=== PATIENT | female | born 1960 | race Caucasian/White ===

== ENCOUNTER 2021-01-04 00:55 | Inpatient (IN) | payer MEDICAID ==
[2021-01-04] MEDS ORDERED: SODIUM CHLORIDE 0.9% 1,000 ML IV STA (01:06)
[2021-01-04] MEDS ORDERED: ONDANSETRON 4 MG/2 ML VIAL IVP STA ×2 (01:06→02:26)
[2021-01-04] MEDS ORDERED: HYDROmorphone 1 MG/ML CARPUJECT IVP STA ×2 (01:15→03:23)
--- NOTE | 2021-01-04 01:20 | ED Physician Documentation ---
PD HPI ABD PAIN - Stated complaint Stated Complaint: R FLANK PX/VOMITING - Chief complaint Chief Complaint: Abd Pain - History obtained from History obtained from: Patient - Additional information Additional information: Patient comes emergency department chief complaint of right flank pain and vomiting for the last 2 days. She states that she has not had any fevers but has had some chills. No dysuria. No respiratory symptoms. Patient has a history of chronic kidney disease but is not on hemodialysis. She does make urine. Patient notes that she still has her appendix. She denies any vaginal symptoms. No other complaints at this time. She states that her pain is an 8 out of 10 at worse and nothing makes it better. She states that taking a deep breath or moving makes it worse. She does note that the pain has moved down lower into her abdomen from its original location in her side. Review of Systems Ten Systems: 10 systems reviewed and negative Constitutional: reports: Reviewed and negative Eyes: reports: Reviewed and negative Ears: reports: Reviewed and negative Nose: reports: Reviewed and negative Throat: reports: Reviewed and negative Cardiac: reports: Reviewed and negative Respiratory: reports: Reviewed and negative GI: reports: Abdominal Pain, Nausea, Vomiting : reports: Reviewed and negative Skin: reports: Reviewed and negative Musculoskeletal: reports: Back pain Neurologic: reports: Reviewed and negative Psychiatric: reports: Reviewed and negative Endocrine: reports: Reviewed and negative Immunocompromised: reports: Reviewed and negative PD PAST MEDICAL HISTORY - Present Medications Home Medications: Ambulatory Orders Medication Instructions Recorded Confirmed Aspirin [[place] Aspirin] 81 mg PO DAILY PRN 01/04/21 01/04/21 Atorvastatin Calcium 40 mg PO DAILY 01/04/21 01/04/21 Bupropion HCl [Wellbutrin Xl] 300 mg PO DAILY 01/04/21 01/04/21 Insulin Detemir [Levemir] 20 units SUBQ QPM 01/04/21 01/04/21 Insulin Lispro [Humalog] 3 - 8 units SUBQ TIDWM 01/04/21 01/04/21 Melatonin 3 mg PO QPM 01/04/21 01/04/21 [place]-3 Fatty Acids [Fish Oil 2,000 mg PO DAILY 01/04/21 01/04/21 Concentrate] - Allergies Allergies/Adverse Reactions: Allergies Allergy/AdvReac Type Severity Reaction Status Date / Time No Known Drug Allergies Allergy Verified 01/04/21 01:02 PD ED PE NORMAL - Vitals Vital signs reviewed: Yes - General General: Alert and oriented X 3, No acute distress, Well developed/nourished, Other (Patient appears uncomfortable but otherwise no distress.) - HEENT HEENT: Atraumatic, PERRL, EOMI, Moist mucous membranes - Neck Neck: Supple, no meningeal sign - Cardiac Cardiac: RRR, No murmur - Respiratory Respiratory: No respiratory distress, Clear bilaterally - Abdomen Abdomen: Soft, Non distended, Other (Right flank and lower quadrant, moderate.) - Derm Derm: Warm and dry, No rash, Other (Moderate pallor, specifically involving the lips.) - Extremities Extremities: No deformity, No edema, No calf tenderness / cord - Neuro Neuro: Alert and oriented X 3 - Psych Psych: Normal mood, Normal affect Results - Vitals Vitals: Vital Signs - 24 hr 01/04/21 01/04/21 01/04/21 00:59 01:30 02:22 Temperature 36.8 C Heart Rate 81 76 83 Respiratory 20 18 18 Rate Blood Pressure 174/45 H 173/70 H 173/78 H O2 Saturation 99 97 100 01/04/21 01/04/21 01/04/21 02:40 03:20 03:42 Temperature 36.4 C L Heart Rate 78 74 78 Respiratory 16 16 18 Rate Blood Pressure 173/78 H 182/73 H 170/59 H O2 Saturation 96 99 100 01/04/21 04:06 Temperature Heart Rate 73 Respiratory 16 Rate Blood Pressure 129/43 L O2 Saturation 100 Oxygen O2 Source Nasal cannula Oxygen Flow Rate 2 - Labs Labs: Laboratory Tests 01/04/21 01/04/21 01:15 01:15 WBC 14.6 H RBC 3.39 L Hgb 9.6 L Hct 29.5 L MCV 87.0 MCH 28.3 MCHC 32.5 RDW 13.9 Plt Count 169 MPV 9.7 Neut # (Auto) 12.3 H Lymph # (Auto) 0.9 L [place] # (Auto) 1.1 H Eos # (Auto) 0.2 Baso # (Auto) 0.0 Absolute Nucleated RBC 0.00 Nucleated RBC % 0.0 Sodium 131 L Potassium 5.2 H Chloride 97 L Carbon Dioxide 21 Anion Gap 13.0 BUN 77 H Creatinine 5.8 H Estimated GFR (MDRD) 7 L Glucose 142 H Calcium 8.5 Total Bilirubin 0.7 AST 19 ALT 18 Alkaline Phosphatase 108 Total Protein 7.6 Albumin 3.9 Globulin 3.7 Albumin/Globulin Ratio 1.1 Lipase 19 L - Rads (name of study) CT abd/pelvis Radiology: Final report received, EMP read indepedently, See rad report (proximal hydroureteronephrosis, perinephric stranding, and renal edema on R. No ureteral stone visualized. No appendicitis/diverticulitis) PD MEDICAL DECISION MAKING - ED course Complexity details: reviewed results, re-evaluated patient, considered differential, d/w patient ED course: Patient was worked up with labs and CT scan of the abdomen and pelvis without contrast. She was treated symptomatically with IV Zofran, Phenergan and Dilaudid, as well as some IV fluids. Laboratory studies did show a decrease in the patient's reported GFR baseline of 15, down to 7 tonight. Her creatinine was 5.8 and her BUN was 77. Patient's potassium was 5.2 and her white blood cell count was 14.6. The patient was afebrile in the emergency department, though she did have some chills. I was concerned about the potential for appendicitis versus a kidney stone and as such, I did obtain a noncontrast CT of the abdomen and pelvis. This showed mild hydroureteric nephrosis, perinephric stranding, and renal edema on the right without evidence of a radiopaque stone. No appendicitis or diverticulitis were noted. I spoke with Dr. Brown, who is on-call for the patient's natural resource technician, Dr. Lowe, to determine whether the patient should be admitted here or transferred to where nephrology and urology services could be available. Dr. Brown reviewed the patient's records and related that her GFR is indeed usually 15 and her creatinine 3.2. He did relate that she just saw Dr. Lowe on the of this month and that she had recently come up from [place] where she lives part-time, and wear a dialysis shunt was placed at the direction of her natural resource technician down there. He felt that at this point in time, it is unlikely that the patient had an existing stone in her right ureter and also felt that it was unlikely that the patient would need nephrology consultation while an inpatient. He recommended admission for fluid hydration. If the patient symptoms improve and she is making urine, then she can follow-up as an outpatient with Dr. Lowe. Otherwise, if she worsens or is not doing better then she can be likely transferred to [place] at that time. I spoke with Dr. Ramos, who was agreeable to this plan and accepted the patient for admission. The patient received a total of 1 L of 0.9 normal saline over the course of 2 hours in the emergency department. She was able to give a urine sample which is pending at this time. Depending on the urine results, we will consider antibiotics for this patient potentially. Patient is feeling a little better although still somewhat nauseated and having some breakthrough pain. We will continue to treat her symptomatically in the emergency department. Departure - Departure Disposition: [facility] DC/Xfer Clinical Impression: Dehydration Vomiting Qualifiers: Vomiting type: unspecified Vomiting Intractability: non-intractable Nausea presence: with nausea Qualified Code(s): R11.2 - Nausea with vomiting, unspecified Acute on chronic kidney failure Qualifiers: Acute renal failure type: unspecified Chronic kidney disease stage: unspecified stage Qualified Code(s): N17.9 - Acute kidney failure, unspecified Condition: Serious
[2021-01-04 01:22] LABS: BASOPHILS % (AUTO) 0.3 %; EOSINOPHILS # (AUTO) 0.2 10^3/uL (0.0-0.7); EOSINOPHILS % (AUTO) 1.4 %; HCT - HEMATOCRIT 29.5 % (37.0-47.0); HGB - HEMOGLOBIN 9.6 g/dL (12.0-16.0); LYMPHOCYTES # (AUTO) 0.9 10^3/uL (1.5-3.5); LYMPHOCYTES % (AUTO) 6.2 %; MEAN CORPUSCULAR HEMOGLOBIN 28.3 pg (27.0-31.0); MEAN CORPUSCULAR HGB CONC 32.5 g/dL (32.0-36.0); MEAN PLATELET VOLUME 9.7 fL (7.9-10.8); MONOCYTES # (AUTO) 1.1 10^3/uL (0.0-1.0); MONOCYTES % (AUTO) 7.4 %; NEUTROPHILS # (AUTO) 12.3 10^3/uL (1.5-6.6); NEUTROPHILS % (AUTO) 84.4 %; PLT - PLATELET COUNT 169 10^3/uL (130-450); RED BLOOD COUNT 3.39 10^6/uL (4.20-5.40); RED CELL DISTRIBUTION WIDTH 13.9 % (12.0-15.0); WHITE BLOOD COUNT 14.6 x10^3/uL (4.8-10.8)
[2021-01-04 01:34] LABS: ALBUMIN 3.9 g/dL (3.2-5.5); ALBUMIN/GLOBULIN RATIO 1.1 (1.0-2.2); BILIRUBIN,TOTAL 0.7 mg/dL (0.2-1.0); CALCIUM 8.5 mg/dL (8.5-10.3); CREATININE 5.8 mg/dL (0.4-1.0); POTASSIUM 5.2 mmol/L (3.5-5.0); TOTAL PROTEIN 7.6 g/dL (6.7-8.2)
[2021-01-04] MEDS ORDERED: SODIUM CHLORIDE 0.9% 500 ML IV STA ×3 (02:01→03:17)
[2021-01-04] MEDS ORDERED: ONDANSETRON 4 MG/2 ML VIAL ONE (02:29)
[2021-01-04] MEDS ORDERED: PROMETHAZINE INJ 25 MG in SODIUM CHLORIDE 0.9% 50 ML IV STA (03:23)
[2021-01-04] MEDS ORDERED: PROMETHAZINE 25 MG/1 ML VIAL ONE (03:29)
[2021-01-04 04:37] LABS: BILIRUBIN,URINE NEGATIVE (NEGATIVE); CLARITY,URINE CLEAR (CLEAR); GLUCOSE, URINE (UA) NEGATIVE (NEGATIVE); KETONES,URINE (UA) NEGATIVE (NEGATIVE); LEUKOCYTE ESTERASE, URINE SMALL (NEGATIVE); NITRITE,URINE NEGATIVE (NEGATIVE); OCCULT BLOOD,URINE MODERATE (NEGATIVE); PROTEIN,URINE 100 mg/dL (NEGATIVE); UROBILINOGEN,URINE 0.2 (NORMAL) E.U./dL (NORMAL)
[2021-01-04 04:46] LABS: BACTERIA,URINE Few /HPF (None Seen); SQUAMOUS EPITHELIAL CELL,UR MOD Squamous (<= Few)
[2021-01-04] MEDS ORDERED: SODIUM CHLORIDE FLUSH 0.9% 10 ML SYRINGE IVP PRN (04:49)
[2021-01-04] MEDS ORDERED: oxyCODONE 5 MG TABLET PO PRN (04:49)
[2021-01-04] MEDS ORDERED: ACETAMINOPHEN 325 MG TABLET PO PRN (04:49)
[2021-01-04] MEDS ORDERED: ASPIRIN CHEW 81 MG TABLET PO PRN (04:51)
--- NOTE | 2021-01-04 04:54 | HISTORY & PHYSICAL EXAMINATION ---
Chief Complaint - Chief Complaint Chief Complaint: Right flank pain History of Present Illness - Admitted From Admitted From:: Home - History Obtained From Records Reviewed: Yes History obtained from: Patient, Spouse, ER Physician, EMR Exam Limitations: Patient is lethargic after receiving narcotics. - History of Present Illness HPI Comment/Other: This is a 60-year-old female with a past medical history significant for ins ulin-dependent diabetes mellitus, chronic kidney disease stage IV/V who presents today complaining of flank pain for the past 2 days. She states her pain began about 2 days ago and located over her right flank. The pain has progressed and she had associated nausea and vomiting. She has had poor oral intake due to her ongoing vomiting significant pain. She denies any dysuria, urgency, hematuria. She reports no abdominal pain. Denies any chest pain, dyspnea, fevers. She does report occasional chills. She states that she does have advanced kidney disease and she had a fistula placed about 3 years ago. She had recent ultrasound which showed that this is not functioning and reportedly will not be usable. She follows with Dr. Lowe of nephrology. She is not sure of her baseline creatinine but believes her GFR is around 15 at baseline. She is still able to urinate and was able to do so just prior to arrival to the emergency department. In the emergency department, she is found to have a BUN of 77 and a creatinine of 5.8 with a GFR of 7. She underwent a CT the abdomen pelvis without contrast which revealed bilateral stones that are nonobstructing. She did have mild right hydroureteronephrosis with perinephric stranding and mild edema. Her urinalysis obtained was a dirty catch. These findings were discussed with on-call nephrology who felt that there is no need to transfer the patient at this time unless she did not respond to IV fluids. Because of the above findings, medicine was consulted for admission. I did discuss goals of care with the patient. She would like to be a full code. History - Past Medical History Cardiovascular: reports: High cholesterol Endocrine/Autoimmune: reports: Type 2 diabetes : reports: Renal insuffiency MRSA Hx?: No - Past Surgical History /UNDERWRITING SPECIALIST: reports: section, Hysterectomy HEENT: reports: Cataracts, Tonsil/Adenoidectomy - Family & Social History Family History Comment/Other: She believes her mother had a history of coronary artery disease. Her father from dementia. Living arrangement: At home Living Situation: With spouse/s.o. Social History Notes: She lives at home with her . She is a non-smoker and has never smoked. Denies any alcohol use. - POLST Patient has POLST: No Meds/Allgy - Home Medications Home Medications: Ambulatory Orders Medication Instructions Recorded Confirmed Aspirin [[place] Aspirin] 81 mg PO DAILY PRN 01/04/21 01/04/21 Atorvastatin Calcium 40 mg PO DAILY 01/04/21 01/04/21 Bupropion HCl [Wellbutrin Xl] 300 mg PO DAILY 01/04/21 01/04/21 Insulin Detemir [Levemir] 20 units SUBQ QPM 01/04/21 01/04/21 Insulin Lispro [Humalog] 3 - 8 units SUBQ TIDWM 01/04/21 01/04/21 Melatonin 3 mg PO QPM 01/04/21 01/04/21 [place]-3 Fatty Acids [Fish Oil 2,000 mg PO DAILY 01/04/21 01/04/21 Concentrate] - Allergies Allergies/Adverse Reactions: Allergies Allergy/AdvReac Type Severity Reaction Status Date / Time No Known Drug Allergies Allergy Verified 01/04/21 01:02 Review of Systems - Constitutional Constitutional: reports: Chills, Poor appetite. denies: Fever, Malaise - Ears, Nose & Throat Ears, Nose & Throat: denies: Nasal discharge, Nasal congestion - Cardiovascular Cariovascular: denies: Chest pain - Respiratory Respiratory: denies: Cough, SOB at rest, SOB with exertion - Gastrointestinal Gastrointestinal: reports: Nausea, Poor appetite. denies: Abdominal pain, Vomiting - Genitourinary Genitourinary: reports: Flank pain. denies: Dysuria, Frequency, Urgency, Hematuria - Musculoskeletal Musculoskeletal: denies: Muscle pain, Back pain - Integumentary Integumentary: denies: Rash - Neurological Neurological: reports: General weakness. denies: Focal weakness - Hematologic/Lymphatic Hematologic/Lymphatic: denies: Bleeding tendencies - All Other Systems All Other Systems: reports: Reviewed and negative Prior Level of Functionality: She is independent with her ADLs. Exam - Vital Signs Reviewed Vital Signs: Yes Vital Signs: Vital Signs x48h Temp Pulse Resp BP Pulse Ox 01/04/21 04:50 36.2 C L 82 14 197/68 H 97 01/04/21 04:34 88 18 191/78 H 97 01/04/21 04:06 73 16 129/43 L 100 01/04/21 03:42 36.4 C L 78 18 170/59 H 100 01/04/21 03:20 74 16 182/73 H 99 01/04/21 02:40 78 16 173/78 H 96 01/04/21 02:22 83 18 173/78 H 100 01/04/21 01:30 76 18 173/70 H 97 01/04/21 00:59 36.8 C 81 20 174/45 H 99 - Physical Exam General Appearance: positive: Lethargic (Due to her receiving multiple doses of Dilaudid prior to my evaluation. She quickly falls asleep but will wake up.) Eyes Bilateral: positive: Normal inspection, Conjunctivae nml ENT: positive: No signs of dehydration, Dry mucous membranes Respiratory: positive: No respiratory distress. negative: Wheezes, Rales Cardiovascular: positive: Regular rate & rhythm, Systolic murmur. negative: No murmur, Irregularly irregular, Tachycardia, Bradycardia Abdomen: positive: Non-tender, No distention. negative: Tenderness, Guarding, Rebound Back: negative: CVA tenderness (R), CVA tenderness (L) Skin: positive: Warm, Dry Extremities: positive: No pedal edema, Other (Left upper extremity fistula noted with a thrill present.) Neurologic/Psychiatric: negative: Disoriented to person, Disoriented to place Conclusion/Plan - Problem List (1) Pyelonephritis Conclusion/Plan: I am concerned for pyelonephritis given her flank pain with associated vomiting, chills. She has an elevated white count of nearly 15,000 and evidence of perinephric stranding and edema on imaging. Her urinalysis unfortunately was a dirty catch. We will treat her empirically with ceftriaxone IV and will repeat a urinalysis. I have ordered for blood cultures which we will follow up on her. Pain control with morphine and oxycodone as needed. (2) Acute on chronic kidney failure Conclusion/Plan: CKD at baseline which is stage IV/V with a GFR of around 15. She now presents with a creatinine of 5.8. Nephrology reports her baseline creatinine is around 3.2. Suspect is likely prerenal injury due to hypovolemia from her ongoing vomiting and poor oral intake. She likely has CKD from underlying diabetes. Imaging did reveal mild right hydroureteronephrosis without evidence of obstruction from a stone. At this time the we will hydrate her with IV fluids and avoid nephrotoxins. We will recheck her renal function this afternoon to ensure it is trending in the right direction. If she has not improved with IV hydration then she will need transfer to higher level of care for nephrology evaluation. Qualifiers: Acute renal failure type: unspecified Chronic kidney disease stage: stage 4 (severe) Qualified Code(s): N17.9 - Acute kidney failure, unspecified; N18.4 - Chronic kidney disease, stage 4 (severe) (3) Hydronephrosis of right kidney Conclusion/Plan: She does have mild right hydronephrosis of the right kidney. It is unclear if this related to potential stricture but is felt to be less likely due to a stone as there was no evidence of an obstructing stone. We will continue to monitor her renal function and will consider repeat imaging if no improvement. (4) Hyponatremia Conclusion/Plan: Suspect this is likely hypovolemic hyponatremia. Her sodium is 131. We will hydrate her with IV fluids and recheck her sodium. (5) Insulin dependent diabetes mellitus Conclusion/Plan: Her blood glucose is currently well controlled. We will place her on a carb controlled diet as tolerated and continue her home insulin regimen. - Lab Results Fish Bones: 01/04/21 01:15 01/04/21 01:15 - Diagnostic Imaging Results Diagnostic Imaging Results: positive: Prelim report reviewed Core Measures - Anticipated LOS I expect patient to be DC'd or transferred within 96 hours.: Yes - Issues Hospital Issues and Management Plan: 60-year-old female with advanced CKD presents with nausea vomiting and flank pain found to have likely pyelonephritis and acute on chronic kidney injury. Will admit for IV antibiotics and IV fluids. - DVT/VTE - Prophylaxis VTE/DVT Device ordered at admit?: Yes VTE/DVT Prophylaxis med ordered at admit?: Yes
[2021-01-04] MEDS ORDERED: LACTATED RINGERS 1,000 ML IV SCH ×3 (05:00→13:45)
[2021-01-04] MEDS ORDERED: cefTRIAXone 1 GM in SODIUM CHLORIDE 0.9% MINIBAG 100 ML IV SCH ×2 (06:00→09:00)
[2021-01-04 06:17] LABS: B. PARAPERTUSSIS- RESP PCR PAN NOT DETECTED; B. PERTUSSIS- RESP PCR PANEL NOT DETECTED; C. PNEUMONIAE- RESP PCR PANEL NOT DETECTED; CORONAVIRUS 229E-RESP PCR NOT DETECTED; CORONAVIRUS HKU1-RESP PCR NOT DETECTED; CORONAVIRUS NL63-RESP PCR NOT DETECTED; CORONAVIRUS OC43-RESP PCR NOT DETECTED; HUMAN METAPNEUMOVIRUS NOT DETECTED; INFLUENZA A- RESP PCR PANEL NOT DETECTED; INFLUENZA B - RESP PCR PANEL NOT DETECTED; M. PNEUMONIAE- RESP PCR PANEL NOT DETECTED; PARAINFLUENZA VIRUS 1 NOT DETECTED; PARAINFLUENZA VIRUS 2 NOT DETECTED; PARAINFLUENZA VIRUS 3 NOT DETECTED; PARAINFLUENZA VIRUS 4 NOT DETECTED; RHINOVIRUS/ENTEROVIRUS NOT DETECTED; RSV- RESP PCR PANEL NOT DETECTED; SARS-CoV-2 -RESP PCR PANEL NOT DETECTED
[2021-01-04 07:40] LABS: BASOPHILS % (AUTO) 0.1 %; EOSINOPHILS # (AUTO) 0.1 10^3/uL (0.0-0.7); EOSINOPHILS % (AUTO) 0.6 %; HCT - HEMATOCRIT 31.3 % (37.0-47.0); HGB - HEMOGLOBIN 10.2 g/dL (12.0-16.0); LYMPHOCYTES # (AUTO) 0.8 10^3/uL (1.5-3.5); LYMPHOCYTES % (AUTO) 5.5 %; MEAN CORPUSCULAR HEMOGLOBIN 28.6 pg (27.0-31.0); MEAN CORPUSCULAR HGB CONC 32.6 g/dL (32.0-36.0); MEAN CORPUSCULAR VOLUME 87.7 fL (81.0-99.0); MONOCYTES # (AUTO) 1.1 10^3/uL (0.0-1.0); MONOCYTES % (AUTO) 7.7 %; NEUTROPHILS # (AUTO) 12.1 10^3/uL (1.5-6.6); NEUTROPHILS % (AUTO) 85.7 %; PLT - PLATELET COUNT 141 10^3/uL (130-450); RED BLOOD COUNT 3.57 10^6/uL (4.20-5.40); RED CELL DISTRIBUTION WIDTH 13.8 % (12.0-15.0); WHITE BLOOD COUNT 14.1 x10^3/uL (4.8-10.8)
[2021-01-04] MEDS ORDERED: NON FORMULARY MED (Insulin Lispro 100 UNIT/ML Ml) SUBQ SCH (08:00)
[2021-01-04 08:14] LABS: CALCIUM 8.4 mg/dL (8.5-10.3); CREATININE 5.5 mg/dL (0.4-1.0); MAGNESIUM 2.4 mg/dL (1.7-2.8)
[2021-01-04 08:17] LABS: POTASSIUM 6.3 mmol/L (3.5-5.0)
[2021-01-04] MEDS ORDERED: DEXTROSE 50% ABBOJECT 25 GM/50 ML SYRINGE IVP ONE (08:20)
[2021-01-04] MEDS ORDERED: INSULIN REGULAR HUMAN 300 UNIT/3 ML VIAL SUBQ ONE (08:20)
--- NOTE | 2021-01-04 08:23 | CT Report ---
PROCEDURE: Abdomen/Pelvis WO INDICATIONS: R flank and LQ pain, N/V TECHNIQUE: Noncontrast 5 mm thick sections acquired from the diaphragms to the symphysis. 5 mm coronal and sagi ttal reformats were then performed. For radiation dose reduction, the following was used: automated exposure control, adjustment of mA and/or kV according to patient size. COMPARISON: None. FINDINGS: Image quality: Excellent. ABDOMEN: Lung bases: Bibasilar dependent atelectasis is seen. 4 to 5 mm oval nodular density in anterior aspec t of right middle lobe is seen series 4 image 1. No pleural effusion or pneumothorax.. Heart size is normal. Solid organs: Liver and spleen are normal in size. Gallbladder is distended and shows no gross abno rmality. Pancreas is normal in contours. No adrenal nodules. Right kidney is slightly enlarged comp ared to the left side. There is moderate right-sided hydronephrosis or hydroureter. Mild to moderate right perinephric fat stranding is also seen. Bilateral nonobstructing renal calculi are noted measur es up to 4 mm in size in mid pole of right kidney. No left-sided hydronephrosis or hydroureter. There is a 4 mm faint hyperdensity seen in distal right ureter just proximal to the right UVJ concerning f or a distal ureteral stone series 3 image 135.. Peritoneum and bowel: Unenhanced bowel loops demonstrate normal wall thickness and caliber. No free fluid or air. Fecal stasis throughout the colon is seen. Appendix is not definitively identified in right lower quadrant abdomen. Nodes and vessels: No retroperitoneal or mesenteric adenopathy by size criteria. Aorta and inferior vena cava are normal in caliber. Miscellaneous: No ventral hernias. PELVIS: Genitourinary: Partially distended bladder wall shows no gross wall abnormality. Miscellaneous: No inguinal hernias or adenopathy. Bones: No suspicious bony lesions. No vertebral body compression fractures. IMPRESSION: 1. Asymmetrically enlarged right kidney with mild to moderate right-sided hydronephrosis and perineph lisa fat stranding. Mild hydroureter with possible 4 mm faintly hyperdense stone in distal right urete r just proximal to right UVJ as above. 2. Bilateral nonobstructing renal calculi. No left-sided hydronephrosis or hydroureter. No gross abno rmality is seen in partially distended urinary bladder. 3. No bowel obstruction. Mild constipation. No free fluid or free air. 4. Bibasilar dependent atelectasis. 4 to 5 mm oval nodular density is seen in anterior aspect of righ t middle lobe incompletely evaluated on this study. Nonurgent follow-up CT chest study can be done fo r further evaluation of bilateral lung lisa. No significant discrepancy from preliminary reading. Reviewed by: Andrés Harrington MD on 01/04/2021 8:21 AM PDT Approved by: Andrés Harrington MD on 01/04/2021 8:21 AM PDT Station ID: [id number]
[2021-01-04] MEDS ORDERED: buPROPion XL 150 MG TABLET PO SCH (09:00)
[2021-01-04] MEDS ORDERED: HEPARIN 5,000 UNIT/ML VIAL SUBQ SCH (09:00)
[2021-01-04] MEDS: INSULIN ASPART 300 UNIT/3 ML PEN SUBQ SCH ×3 (09:13→16:40)
[2021-01-04] MEDS: ONDANSETRON 4 MG/2 ML VIAL IVP PRN ×2 (09:24→16:10)
[2021-01-04] MEDS: MORPHINE 2 MG/ML CARPUJECT IVP PRN ×4 (09:24→19:43)
[2021-01-04] MEDS: SODIUM CHLORIDE FLUSH 0.9% 10 ML SYRINGE IVP SCH ×2 (10:01→16:40)
[2021-01-04 12:48] LABS: CALCIUM 8.2 mg/dL (8.5-10.3); CREATININE 5.9 mg/dL (0.4-1.0); POTASSIUM 5.6 mmol/L (3.5-5.0)
[2021-01-04 13:06] LABS: BILIRUBIN,URINE NEGATIVE (NEGATIVE); GLUCOSE, URINE (UA) NEGATIVE (NEGATIVE); KETONES,URINE (UA) NEGATIVE (NEGATIVE); LEUKOCYTE ESTERASE, URINE NEGATIVE (NEGATIVE); NITRITE,URINE NEGATIVE (NEGATIVE); OCCULT BLOOD,URINE MODERATE (NEGATIVE); PROTEIN,URINE 30 mg/dL (NEGATIVE); UROBILINOGEN,URINE 0.2 (NORMAL) E.U./dL (NORMAL)
[2021-01-04 13:09] LABS: CLARITY,URINE CLEAR (CLEAR)
[2021-01-04 13:13] LABS: BACTERIA,URINE Rare /HPF (None Seen); SQUAMOUS EPITHELIAL CELL,UR FEW Squamous (<= Few); WBC,URINE 0-3 /HPF (0-5)
--- NOTE | 2021-01-04 14:07 | PHARMACY PROGRESS NOTE ---
- Best Possible Medication History Admit Date and Time: 01/04/21 0449 Processed by: Nursing Medication History completed: Yes As the person ultimately responsible for medication therapy, providers are able to order a medication from an existing home medication list in [facility] via the "Reconcile Routine" prior to Confirmation of that medication by child support case officer. Such practice is discouraged except when the physician, in their clinical judgment, deems that a medical need exists for a medication without regard to previous use.
[2021-01-04] MEDS ORDERED: SODIUM POLYSTYRENE SULFONATE 15 GM/60 ML BOTTLE PO ONE (16:01)
--- NOTE | 2021-01-04 17:11 | DISCHARGE SUMMARY ---
Discharge Summary Admit Date: 01/04/21 Discharge Date: 01/04/21 Discharging Provider: Jose Hernandez Primary Care Provider: Dr. Lowe Condition at Discharge: Serious Discharge Facility Name: [facility] - DIAGNOSES Discharge Diagnoses with Status of Each Condition: (1) Acute on chronic kidney failure although continue hydration with IVF, pt's kidney function became worsening. creatinine is 5.9 now, she had 5.8 at the admission. Call [facility] for high level care. Last night ER already call s iron worker in [place], if pt's kidney function is not improved or worsening after hydration, pt need to be transferred to high level care. Both pt's s iron worker Dr. Lowe and hospitalist accept pt for high level care. appreciate both for taking care of this pt. (2)hyperkalemia pt's potassium was rise to 6.3 in the morning from 5.2 at admission. pt was given 10 unit of insulin with D50. Her potassium is down to 5.6 now. pt was given once kayexalate at this afternoon. (3) Pyelonephritis although repeated pt's UA analysis was unremarkable for infection concern, but given her flank pain with associated vomiting, chills. She has an elevated white count of nearly 15,000 and evidence of perinephric stranding and edema on imaging. Her first urinalysis unfortunately was a dirty catch. pt was treated with empirically ceftriaxone IV already. pt had blood culture and blood cultures is pending. (4) Hydronephrosis of right kidney She has enlarged right kidney with mild to moderate right hydronephrosis. CT of abdomen and pelvis show mild hydroureter with possible 4 mm faintly hyperdense stone in distal right ureter just at Proximal to right UVJ. pt also presented right flank pain. ER provider call [place] s iron worker on last night, s iron worker believed it is unlikely that the patient had an existing stone in her right ureter. (5) Hyponatremia Suspect this is likely hypovolemic hyponatremia. Her sodium is slight improved to 132. (6) Insulin dependent diabetes mellitus Her blood glucose is currently well controlled. pt took insulin at her home meds list - HPI History of Present Illness: refer from Dr. Ramos's HPI on 01/04/21 This is a 60-year-old female with a past medical history significant for insulin-dependent diabetes mellitus, chronic kidney disease stage IV/V who presents today complaining of flank pain for the past 2 days. She states her kal n began about 2 days ago and located over her right flank. The pain has progressed and she had associated nausea and vomiting. She has had poor oral intake due to her ongoing vomiting significant pain. She denies any dysuria, urgency, hematuria. She reports no abdominal pain. Denies any chest pain, dyspnea, fevers. She does report occasional chills. She states that she does have advanced kidney disease and she had a fistula placed about 3 years ago. She had recent ultrasound which showed that this is not functioning and reportedly will not be usable. She follows with Dr. Lowe of nephrology. She is not sure of her baseline creatinine but believes her GFR is around 15 at baseline. She is still able to urinate and was able to do so just prior to arrival to the emergency department. In the emergency department, she is found to have a BUN of 77 and a creatinine of 5.8 with a GFR of 7. She underwent a CT the abdomen pelvis without contrast which revealed bilateral stones that are nonobstructing. She did have mild right hydroureteronephrosis with perinephric stranding and mild edema. Her urinalysis obtained was a dirty catch. These findings were discussed with on-call nephrology who felt that there is no need to transfer the patient at this time unless she did not respond to IV fluids. Because of the above findings, medicine was consulted for admission. I did discuss goals of care with the patient. She would like to be a full code. - HOSPITAL COURSE Hospital Course: Patient was admitted for right flank pain, with nause, vomiting and chill. CAT scan of abdomen and pelvis show Patient has enlarged right kidney with mild to moderate right hydronephrosis and perinephric fat stranding, bilateral non- obstruction kidney stone, and mild hydroureter with possible 4 mm faintly hyperdense stone in distal right ureter just at Proximal to right UVJ. Patient was treated with intravenous IV fluids, analytical laboratory technician, and Rocephin antibiotics concern for pyelonephritis. In the morning patient developed hyperkalemia, patient was treated with insulin with D50, Then patient's potassium was trended down. But patient's creatinine is up to 5.9 from 5.8 at admission. Call [place] For higher level of the care, Both s iron worker and hospitalist accepted patient. Patient was transferred to [place] for higher level of care. - ALLERGIES Allergies/Adverse Reactions: Allergies Allergy/AdvReac Type Severity Reaction Status Date / Time No Known Drug Allergies Allergy Verified 01/04/21 01:02 - MEDICATIONS Home Medications: Ambulatory Orders Medication Instructions Recorded Confirmed Aspirin [[place] Aspirin] 81 mg PO DAILY PRN 01/04/21 01/04/21 Atorvastatin Calcium 40 mg PO DAILY 01/04/21 01/04/21 Bupropion HCl [Wellbutrin Xl] 300 mg PO DAILY 01/04/21 01/04/21 Insulin Detemir [Levemir] 20 units SUBQ QPM 01/04/21 01/04/21 Insulin Lispro [Humalog] 3 - 8 units SUBQ TIDWM 01/04/21 01/04/21 Melatonin 3 mg PO QPM 01/04/21 01/04/21 [place]-3 Fatty Acids [Fish Oil 2,000 mg PO DAILY 01/04/21 01/04/21 Concentrate] - PHYSICAL EXAM AT DISCHARGE General Appearance: positive: No acute distress, Alert. negative: Lethargic Eyes Bilateral: positive: Normal inspection, PERRL, No lid inflammation ENT: positive: ENT inspection nml, No signs of dehydration. negative: Purulent nasal drainage Neck: positive: Nml inspection, Trachea midline. negative: Thyromegaly, Tracheal deviation Respiratory: positive: Chest non-tender, No respiratory distress. negative: Wheezes, Rales Cardiovascular: positive: Regular rate & rhythm, No murmur. negative: Tachycardia, Bradycardia, Systolic murmur, Diastolic murmur Peripheral Pulses: positive: 2+ Abdomen: positive: Nml bowel sounds, No distention, Tenderness Back: positive: Nml inspection, CVA tenderness (R). negative: CVA tenderness (L) Skin: positive: Color nml, Warm, Dry. negative: Cyanosis Extremities: positive: Non-tender, Nml appearance. negative: Calf tenderness Neurologic/Psychiatric: positive: Oriented x3, Sensation nml, Mood/affect nml. negative: Sensory loss, Facial droop, Slurred/abnml speech, Depressed mood/affect - LABS Result Diagrams: 01/04/21 07:27 01/04/21 12:05 - FOLLOW UP Follow Up: Patient is transferred to [place] for higher level of care - TIME SPENT Time Spent in Discharge (Minutes): 30
[2021-01-04 19:24] VITALS: BP 150/74
[2021-01-04] MEDS ORDERED: ATORVASTATIN 40 MG TABLET PO SCH (21:00)
[2021-01-04] MEDS ORDERED: INSULIN GLARGINE 300 UNIT/3 ML PEN SUBQ SCH (21:00)
== END 2021-01-04 20:00 | disposition short-term general hospital (02) | DRG 683 ==
LOC: ED 00:55 → MS2 04:49
PROVIDERS: ADMIT Internal Medicine; ATTEND Nurse Practitioner Gerontology
DX: N17.9 Acute kidney failure, unspecified (principal); E87.1 Hypo-osmolality and hyponatremia; E11.22 Type 2 diabetes mellitus with diabetic chronic kidney disease; N18.5 Chronic kidney disease, stage 5; N13.6 Pyonephrosis; E87.5 Hyperkalemia; E78.00 Pure hypercholesterolemia, unspecified; Z20.822 Contact with and (suspected) exposure to COVID-19; Z79.4 Long term (current) use of insulin; Z79.82 Long term (current) use of aspirin; Z79.899 Other long term (current) drug therapy
CPT/HCPCS: 0202U; 36415; 74176; 80048; 80053; 81001; 83690; 83735; 85025; 87040; 93005; 96361; 96365; 96375; 96376; 99284; 99285; A9270; J1170; J1815; J7040; J7120; 81003; 87086

== ENCOUNTER 2021-01-09 17:44 | Emergency (ER) | payer MEDICAID ==
[2021-01-09 18:23] LABS: BASOPHILS # (AUTO) 0.1 10^3/uL (0.0-0.1); BASOPHILS % (AUTO) 0.5 %; EOSINOPHILS # (AUTO) 0.3 10^3/uL (0.0-0.7); EOSINOPHILS % (AUTO) 3.4 %; HCT - HEMATOCRIT 26.9 % (37.0-47.0); HGB - HEMOGLOBIN 9.1 g/dL (12.0-16.0); LYMPHOCYTES # (AUTO) 0.7 10^3/uL (1.5-3.5); LYMPHOCYTES % (AUTO) 7.3 %; MEAN CORPUSCULAR HEMOGLOBIN 29.1 pg (27.0-31.0); MEAN CORPUSCULAR HGB CONC 33.8 g/dL (32.0-36.0); MEAN CORPUSCULAR VOLUME 85.9 fL (81.0-99.0); MEAN PLATELET VOLUME 9.5 fL (7.9-10.8); MONOCYTES # (AUTO) 0.8 10^3/uL (0.0-1.0); MONOCYTES % (AUTO) 8.3 %; NEUTROPHILS # (AUTO) 7.6 10^3/uL (1.5-6.6); NEUTROPHILS % (AUTO) 78.7 %; PLT - PLATELET COUNT 219 10^3/uL (130-450); RED BLOOD COUNT 3.13 10^6/uL (4.20-5.40); RED CELL DISTRIBUTION WIDTH 13.8 % (12.0-15.0); WHITE BLOOD COUNT 9.6 x10^3/uL (4.8-10.8)
[2021-01-09] MEDS ORDERED: ONDANSETRON 4 MG/2 ML VIAL IVP STA (18:40)
[2021-01-09] MEDS ORDERED: hydrALAZINE INJ 20 MG/ML VIAL IVP STA (18:40)
--- NOTE | 2021-01-09 18:40 | ED Physician Documentation ---
History of Present Illness - Stated complaint Stated Complaint: N/V/ABD PX - Chief complaint Chief Complaint: Abd Pain - Additonal information Additional information: 60-year-old female presents the emergency department for concerns of dehydration and uncontrolled nausea and vomiting. She unfortunately has a history of acute on chronic renal failure. She was admitted to this hospital on 04 January for an obstructing kidney stone but no concerns of infection. Nephrology and urology were consulted but they did not feel she needed emergent transfer however over the course of 24 hours her renal function worsened and she was subsequently transferred to [facility]. Patient reports to me that she was attended by Dr. Lowe her clam picker at [facility]. While there she was diagnosed with a urinary tract infection and started on Levaquin. There was conversation that she should be started immediately on hemodialysis but they decided to wait for at least 2 weeks. Patient was discharged home yesterday afternoon. She felt that she was constipated took a stool softener and has had a bowel movement over the course of the last 12 to 24 hours she has had persistent nausea. She denies worsening abdominal pain and no fevers. Review of Systems Constitutional: denies: Fever, Chills Eyes: reports: Reviewed and negative Ears: reports: Reviewed and negative Nose: reports: Reviewed and negative Throat: reports: Reviewed and negative Cardiac: reports: Reviewed and negative Respiratory: reports: Reviewed and negative GI: reports: Abdominal Pain, Nausea : reports: Reviewed and negative Skin: reports: Reviewed and negative Musculoskeletal: reports: Reviewed and negative PD PAST MEDICAL HISTORY - Past Medical History Cardiovascular: High cholesterol Endocrine/Autoimmune: Type 2 diabetes : Renal insuffiency Psych: Other - Past Surgical History Past Surgical History: Yes /SPORTS MEDICINE PHYSICIAN: section, Hysterectomy HEENT: Cataracts, Tonsil/Adenoidectomy - Present Medications Home Medications: Ambulatory Orders Medication Instructions Recorded Confirmed Aspirin [Ava Aspirin] 81 mg PO DAILY PRN 01/04/21 01/04/21 Atorvastatin Calcium 40 mg PO DAILY 01/04/21 01/04/21 Bupropion HCl [Wellbutrin Xl] 300 mg PO DAILY 01/04/21 01/04/21 Insulin Detemir [Levemir] 20 units SUBQ QPM 01/04/21 01/04/21 Insulin Lispro [Humalog] 3 - 8 units SUBQ TIDWM 01/04/21 01/04/21 Melatonin 3 mg PO QPM 01/04/21 01/04/21 [place]-3 Fatty Acids [Fish Oil 2,000 mg PO DAILY 01/04/21 01/04/21 Concentrate] Ondansetron Odt [Zofran] 4 mg TL Q6H PRN #10 tablet 01/09/21 polyethylene glycoL 3350 [Miralax] 17 gm PO DAILY PRN #1 bottle 01/09/21 - Allergies Allergies/Adverse Reactions: Allergies Allergy/AdvReac Type Severity Reaction Status Date / Time No Known Drug Allergies Allergy Verified 01/09/21 17:56 - Social History Does the pt smoke?: No Smoking Status: Never smoker Does the pt drink ETOH?: No Does the pt have substance abuse?: No - Immunizations Immunizations are current?: No - POLST Patient has POLST: No PD ED PE EXPANDED - General General: Alert, Other (ill appearing, nauseated) - Cardiac Cardiac: Regular Rate, Cap refill < 2 sec, Other (1+ radial and pedal pulses) - Respiratory Respiratory: Clear to ausultation angélica. No: Distress, Labored - Abdomen Abdomen: Normal Bowel sounds. No: Tender to palpation - Derm Derm: Normal color, Warm and dry - Neuro Neuro: Alert and Oriented X 3, CNII-XII intact - GCS Eye Opening: Spontaneous Motor: Obeys Commands Verbal: Oriented Total: 15 Results - Vitals Vitals: Vital Signs - 24 hr 01/09/21 01/09/21 01/09/21 17:50 19:56 21:00 Temperature 36.6 C Heart Rate 71 75 76 Respiratory 20 13 10 L Rate Blood Pressure 216/69 H 179/81 H 122/62 O2 Saturation 99 97 98 Oxygen O2 Source Room air - EKG (time done) 1827 Rate: Rate (enter#) (77) Rhythm: NSR [place]: Normal QRS: Normal Ischemia: Normal ST segments Compare to prior EKG: Unchanged from prior EKG Computer interpretation: Agree with computer (No EKG findings to suggest hyperkalemia.) - Labs Labs: Laboratory Tests 01/09/21 01/09/21 01/09/21 18:18 18:26 18:38 WBC 9.6 RBC 3.13 L Hgb 9.1 L Hct 26.9 L MCV 85.9 MCH 29.1 MCHC 33.8 RDW 13.8 Plt Count 219 MPV 9.5 Neut # (Auto) 7.6 H Lymph # (Auto) 0.7 L [place] # (Auto) 0.8 Eos # (Auto) 0.3 Baso # (Auto) 0.1 Absolute Nucleated RBC 0.00 Nucleated RBC % 0.0 Sodium 136 Potassium 4.5 Chloride 101 Carbon Dioxide 22 Anion Gap 13.0 BUN 49 H Creatinine 4.0 H Estimated GFR (MDRD) 11 L Glucose 169 H Calcium 8.6 Total Bilirubin 0.6 AST 20 ALT 19 Alkaline Phosphatase 102 Total Protein 7.7 Albumin 3.7 Globulin 4.0 Albumin/Globulin Ratio 0.9 L Lipase 18 L Urine Color YELLOW Urine Clarity CLEAR Urine pH 7.5 Ur Specific [place] 1.010 Urine Protein 100 H Urine Glucose (UA) NEGATIVE Urine Ketones NEGATIVE Urine Occult Blood MODERATE H Urine Nitrite NEGATIVE Urine Bilirubin NEGATIVE Urine Urobilinogen 0.2 (NORMAL) Ur Leukocyte Esterase NEGATIVE Urine RBC 6-10 H Urine WBC 0-3 Ur Epithelial Cells RARE Transitional Ur Squamous Epith Cells NONE SEEN Urine Bacteria None Seen Ur Microscopic Review INDICATED Urine Culture Comments NOT INDICATED - Rads (name of study) CT abd Radiology: Final report received (Mild hydronephrosis right kidney. Several scattered small renal collecting system calculi are present which appear obstructed. A calculus within the right ureter is not found nor within the left. The appearance may reflect recent passage of a ureteral stone on the right.) PD MEDICAL DECISION MAKING - ED course Complexity details: reviewed results, re-evaluated patient, d/w patient, d/w senior recruitment consultant (Dr. Bruna Wolf) ED course: 60-year-old female who has a history of acute on chronic renal failure, recent diagnosis of urinary tract infection as well as pyelonephritis in the setting of obstructing stones presents to the emergency department today with nausea and vomiting. She is seen at this ER on the of this month and ultimately required transfer to [facility] for further evaluation of her kidney infection as well as kidney failure. She was attended by Dr. Laguerre while there and they discussed the possibility of initiating hemodialysis the decision was made to delay it by about 2 weeks. When she left the hospital here she had a GFR of seven. Today her GFR is improved at 11 as well as her BUN and creatinine. Patient had reported that she was constipated and took a stool softener and was able to have a bowel movement but she is concerned given the persistent nausea that she may have worsening kidney injury or a problem with her intestines. Screening labs today show moderate but persistent anemia unchanged from baseline. As discussed above and improving kidney function. She will however require hemodialysis in the very near future. CT noncontrast was completed that shows a likely recently passed ureter stone. She continues to have persistent right-sided hydronephrosis but the perinephric standing is improved. She is continuing to complete a course of Levaquin. I did discuss this case with on-call clam picker Dr. Wolf at [facility] who is quite familiar with her case and recent hospitalization. We discussed her screening labs and her CT imaging today. He feels that the patient is stable for discharge home she is to complete her course of Levaquin. He is comfortable with as needed doses of Zofran for nausea and he would recommend [id number] stool softener such as Senokot or a few doses of MiraLAX to help with constipation. She is to continue to follow-up with Dr. Lowe at [facility] as scheduled next week. She is scheduled to have repeat labs obtained in the next 72 hours as well. I discussed the plan and findings with the patient and her both were agreeable and comfortable with discharge home. Emergent return precautions were discussed. Departure - Departure Disposition: 01 Home, Self Care Clinical Impression: CKD (chronic kidney disease) stage 5, GFR less than 15 ml/min Nausea & vomiting Qualifiers: Vomiting type: unspecified Vomiting Intractability: non-intractable Qualified Code(s): R11.2 - Nausea with vomiting, unspecified Constipation Qualifiers: Constipation type: other constipation type Qualified Code(s): K59.09 - Other constipation Condition: Stable Record reviewed to determine appropriate education?: Yes Follow-Up: Laurie Lowe MD [Primary Care Provider] - Prescriptions: polyethylene glycoL 3350 [Miralax] 17 gm PO DAILY PRN #1 bottle PRN Reason: Constipation Ondansetron Odt [Zofran] 4 mg TL Q6H PRN #10 tablet PRN Reason: Nausea / Vomiting Comments: Gosia today your GFR is 11. Your kidney values are improved from your last stay here at [facility]. The CT scan does show that you have a large amount of stool within the colon. The kidneys stone that was in your ureter appears to have passed. It is important that you continue to complete the Levaquin or the antibiotic prescribed at [place]. I have prescribed some Zofran that can be used 2-3 times a day to help with your nausea. Please take frequent sips of water. To help with the constipation please take the MiraLAX once or twice a day until you have two or three watery bowel movements. It is important that you continue to follow-up with Dr. Lowe as already scheduled. If at any point you feel that your symptoms are worsening, you have uncontrolled vomiting, fevers or abdominal pain please return immediately to the ER.
[2021-01-09 18:44] LABS: BILIRUBIN,URINE NEGATIVE (NEGATIVE); GLUCOSE, URINE (UA) NEGATIVE (NEGATIVE); KETONES,URINE (UA) NEGATIVE (NEGATIVE); LEUKOCYTE ESTERASE, URINE NEGATIVE (NEGATIVE); NITRITE,URINE NEGATIVE (NEGATIVE); OCCULT BLOOD,URINE MODERATE (NEGATIVE); PH,URINE 7.5 PH (5.0-7.5); PROTEIN,URINE 100 mg/dL (NEGATIVE); UROBILINOGEN,URINE 0.2 (NORMAL) E.U./dL (NORMAL)
[2021-01-09 18:45] LABS: CLARITY,URINE CLEAR (CLEAR)
[2021-01-09 18:54] LABS: ALBUMIN 3.7 g/dL (3.2-5.5); ALBUMIN/GLOBULIN RATIO 0.9 (1.0-2.2); BILIRUBIN,TOTAL 0.6 mg/dL (0.2-1.0); CALCIUM 8.6 mg/dL (8.5-10.3); POTASSIUM 4.5 mmol/L (3.5-5.0); TOTAL PROTEIN 7.7 g/dL (6.7-8.2)
[2021-01-09 18:55] LABS: SQUAMOUS EPITHELIAL CELL,UR NONE SEEN (<= Few); WBC,URINE 0-3 /HPF (0-5)
[2021-01-09 18:56] LABS: BACTERIA,URINE None Seen /HPF (None Seen); EPITHELIAL CELLS,UR RARE Transitional /HPF (<= Few)
[2021-01-09] MEDS ORDERED: diazePAM INJ 5 MG/ML SYRINGE IVP STA (19:20)
--- NOTE | 2021-01-09 19:45 | CT Report ---
PROCEDURE: Abdomen/Pelvis WO INDICATIONS: ? pyelonephritis, obstructing kidney stone TECHNIQUE: Noncontrast 5 mm thick sections acquired from the diaphragms to the symphysis. 5 mm coronal and sagi ttal reformats were then performed. For radiation dose reduction, the following was used: automated exposure control, adjustment of mA and/or kV according to patient size. COMPARISON: None. FINDINGS: Image quality: Excellent. ABDOMEN: Lung bases: Lung bases are clear. Heart size is normal. Solid organs: Liver and spleen are normal in size. Gallbladder appears normal Pancreas is normal i n contours. No adrenal nodules. Kidneys are normal in size, without left-sided hydronephrosis but t here is right-sided nephrolithiasis and hydronephrosis. Mild hydronephrosis is noted associated with scattered small nonobstructive calculi within the collecting system of the right kidney, measuring fr om 3 to 1.5 mm. The ureter appears mildly inflamed along its course in the retroperitoneum and crosse s adjacent to several pelvic and abdominal retroperitoneal phleboliths. For example, series 3 image 4 8 shows the phlebolith within a vein and the ureter immediately posterior. Along the course of the ri ght ureter a definite ureteral stone cannot be seen. At the bladder margin the ureter is normal and f ree of calculus. On the right the kidney is normal in size but on the left the kidney is relatively small. No obstruct alvin calculus is seen within the left ureter or collecting system. The bladder itself does not appear to contain a calculus.. Peritoneum and bowel: Unenhanced bowel loops demonstrate normal wall thickness and caliber. No free fluid or air. Nodes and vessels: No retroperitoneal or mesenteric adenopathy by size criteria. Aorta and inferior vena cava are normal in caliber. Miscellaneous: No ventral hernias. PELVIS: Genitourinary: Bladder wall thickness is normal. Miscellaneous: No inguinal hernias or adenopathy. Bones: No suspicious bony lesions. No vertebral body compression fractures. IMPRESSION: Mild hydronephrosis right kidney. Several scattered small right renal collecting system calculi are p resent none of which appear obstructed. A calculus within the right ureter is not found nor within th e left. The appearance may reflect recent passage of a ureteral stone on the right. Reviewed by: Juan Blackburn MD on 01/09/2021 7:44 PM PDT Approved by: Juan Blackburn MD on 01/09/2021 7:44 PM PDT Station ID: [id number]
[2021-01-09] MEDS ORDERED: ONDANSETRON ODT 4 MG Prepack 2 TL PRN (21:50)
[2021-01-09 22:05] VITALS: BP 186/78
[2021-01-09] MEDS ORDERED: ONDANSETRON ODT 4 MG TABLET TL STA (22:18)
== END 2021-01-09 22:22 | disposition home or self-care (01) ==
LOC: ED 17:44
DX: E11.22 Type 2 diabetes mellitus with diabetic chronic kidney disease (principal); N18.5 Chronic kidney disease, stage 5; N17.9 Acute kidney failure, unspecified; D63.1 Anemia in chronic kidney disease; K59.09 Other constipation; Z79.4 Long term (current) use of insulin
CPT/HCPCS: 36415; 74176; 80053; 81001; 83690; 85025; 93005; 96374; 96375; 99284; Q0162; 81003; 87086

== ENCOUNTER 2022-04-10 10:05 | Emergency (ER) | payer MEDICAID ==
[2022-04-10 10:53] LABS: BASOPHILS # (AUTO) 0.1 10^3/uL (0.0-0.1); BASOPHILS % (AUTO) 0.8 %; EOSINOPHILS # (AUTO) 0.3 10^3/uL (0.0-0.7); EOSINOPHILS % (AUTO) 3.8 %; HCT - HEMATOCRIT 32.2 % (37.0-47.0); HGB - HEMOGLOBIN 10.6 g/dL (12.0-16.0); LYMPHOCYTES % (AUTO) 12.9 %; MEAN CORPUSCULAR HEMOGLOBIN 28.8 pg (27.0-31.0); MEAN CORPUSCULAR HGB CONC 32.9 g/dL (32.0-36.0); MEAN CORPUSCULAR VOLUME 87.5 fL (81.0-99.0); MEAN PLATELET VOLUME 9.6 fL (7.9-10.8); MONOCYTES # (AUTO) 0.7 10^3/uL (0.0-1.0); MONOCYTES % (AUTO) 8.6 %; NEUTROPHILS # (AUTO) 5.6 10^3/uL (1.5-6.6); NEUTROPHILS % (AUTO) 73.5 %; PLT - PLATELET COUNT 164 10^3/uL (130-450); RED BLOOD COUNT 3.68 10^6/uL (4.20-5.40); RED CELL DISTRIBUTION WIDTH 13.7 % (12.0-15.0); WHITE BLOOD COUNT 7.7 x10^3/uL (4.8-10.8)
[2022-04-10 11:05] LABS: BILIRUBIN,URINE NEGATIVE (NEGATIVE); GLUCOSE, URINE (UA) 250 mg/dL (NEGATIVE); KETONES,URINE (UA) NEGATIVE (NEGATIVE); LEUKOCYTE ESTERASE, URINE NEGATIVE (NEGATIVE); NITRITE,URINE NEGATIVE (NEGATIVE); OCCULT BLOOD,URINE MODERATE (NEGATIVE); PH,URINE 7.5 PH (5.0-7.5); PROTEIN,URINE 100 mg/dL (NEGATIVE); UROBILINOGEN,URINE 0.2 (NORMAL) E.U./dL (NORMAL)
[2022-04-10 11:06] LABS: CLARITY,URINE CLEAR (CLEAR)
[2022-04-10] MEDS ORDERED: ONDANSETRON 4 MG/2 ML VIAL IVP STA (11:07)
[2022-04-10] MEDS ORDERED: MORPHINE 2 MG/ML CARPUJECT IVP STA (11:07)
[2022-04-10] MEDS ORDERED: SODIUM CHLORIDE 0.9% 1,000 ML IV STA (11:07)
[2022-04-10 11:11] LABS: ALBUMIN 4.1 g/dL (3.2-5.5); ALBUMIN/GLOBULIN RATIO 1.2 (1.0-2.2); BILIRUBIN,TOTAL 0.6 mg/dL (0.2-1.0); CREATININE 3.3 mg/dL (0.4-1.0); TOTAL PROTEIN 7.6 g/dL (6.7-8.2)
[2022-04-10 11:12] LABS: POTASSIUM 6.1 mmol/L (3.5-5.0)
[2022-04-10 11:16] LABS: BACTERIA,URINE Rare /HPF (None Seen); SQUAMOUS EPITHELIAL CELL,UR RARE Squamous (<= Few); WBC,URINE 0-3 /HPF (0-5)
[2022-04-10] MEDS ORDERED: FUROSEMIDE 20 MG/2 ML VIAL IVP STA (11:32)
[2022-04-10] MEDS ORDERED: DEXTROSE 25% ABBOJECT 2.5 GM/10 ML SYRINGE IVP STA (11:35)
[2022-04-10] MEDS ORDERED: INSULIN REGULAR HUMAN 100 UNIT/1 ML 10 ML MDV IVP STA (11:35)
--- NOTE | 2022-04-10 11:35 | ED Physician Documentation ---
PD HPI ABD PAIN - Stated complaint Stated Complaint: LT SIDE PX - Chief complaint Chief Complaint: Abd Pain - History obtained from History obtained from: Patient - Additional information Additional information: Patient is a 61-year-old female with a history of chronic kidney disease and kidney stones presenting for evaluation of right-sided kidney flank pain that started this morning and now radiating to the right lower quadrant. She has associated nausea and vomiting. She does make urine and denies hematuria, dysuria or urinary frequency. She denies fever or chills. She has not taken anything yet for her pain. She denies anything that makes her pain better or worse. She has a capital project engineer through Dr. Curtis Murdock And has not yet started dialysis. She last saw her capital project engineer 2 weeks ago. Review of Systems Constitutional: denies: Fever Nose: denies: Congestion Cardiac: denies: Chest pain / pressure Respiratory: denies: Dyspnea, Cough GI: reports: Abdominal Pain, Nausea, Vomiting : denies: Dysuria Musculoskeletal: denies: Neck pain Neurologic: denies: Headache PD PAST MEDICAL HISTORY - Past Medical History Cardiovascular: High cholesterol Endocrine/Autoimmune: Type 2 diabetes : Renal insuffiency Psych: Other - Past Surgical History Past Surgical History: Yes /EDUCATIONAL ASSISTANT: section, Hysterectomy HEENT: Cataracts, Tonsil/Adenoidectomy - Present Medications Home Medications: Ambulatory Orders Medication Instructions Recorded Confirmed Aspirin [[place] Aspirin] 81 mg PO DAILY PRN 01/04/21 01/04/21 Atorvastatin Calcium 40 mg PO DAILY 01/04/21 01/04/21 Bupropion HCl [Wellbutrin Xl] 300 mg PO DAILY 01/04/21 01/04/21 Insulin Detemir [Levemir] 20 units SUBQ QPM 01/04/21 01/04/21 Insulin Lispro [Humalog] 3 - 8 units SUBQ TIDWM 01/04/21 01/04/21 Melatonin 3 mg PO QPM 01/04/21 01/04/21 [place]-3 Fatty Acids [Fish Oil 2,000 mg PO DAILY 01/04/21 01/04/21 Concentrate] Ondansetron Odt [Zofran] 4 mg TL Q6H PRN #10 tablet 01/09/21 polyethylene glycoL 3350 [Miralax] 17 gm PO DAILY PRN #1 bottle 01/09/21 Ondansetron Odt [Zofran] 4 mg TL Q6H PRN #10 tablet 04/10/22 Oxycodone HCl/Acetaminophen 1 each PO Q6H PRN #10 tablet 04/10/22 [Percocet 5-325 mg Tablet] Sod Polystyrene Sulf. [Kayexalate] See Rx Instructions .ROUTE 04/10/22 .COMPLEX #160 ml - Allergies Allergies/Adverse Reactions: Allergies Allergy/AdvReac Type Severity Reaction Status Date / Time No Known Drug Allergies Allergy Verified 04/10/22 10:23 - Social History Does the pt smoke?: No Smoking Status: Never smoker Does the pt drink ETOH?: No Does the pt have substance abuse?: No - Immunizations Immunizations are current?: No - POLST Patient has POLST: No PD ED PE NORMAL - General General: Alert and oriented X 3, No acute distress, Well developed/nourished - HEENT HEENT: Atraumatic, Moist mucous membranes - Neck Neck: Supple, no meningeal sign - Cardiac Cardiac: RRR, No murmur, Strong equal pulses - Respiratory Respiratory: No respiratory distress, Clear bilaterally - Abdomen Abdomen: Normal bowel sounds, Soft, Non distended, Other (Right lower quadrant tenderness, no mass, no hernia) - Derm Derm: Warm and dry - Extremities Extremities: No edema - Neuro Neuro: Normal speech Results - Vitals Vitals: Vital Signs - 24 hr 04/10/22 04/10/22 04/10/22 10:16 12:23 14:00 Temperature 36 C L Heart Rate 65 66 63 Respiratory 16 18 13 Rate Blood Pressure 214/62 H 158/74 H 164/70 H O2 Saturation 99 94 98 Oxygen O2 Source Room air - EKG (time done) 1126 Rate: Rate (enter#) (71) Rhythm: NSR Intervals: No: Prolonged QT (QTC 433) Ischemia: No: ST elevation c/w ischemia - Labs Labs: Laboratory Tests 04/10/22 04/10/22 04/10/22 10:46 10:46 10:57 WBC 7.7 RBC 3.68 L Hgb 10.6 L Hct 32.2 L MCV 87.5 MCH 28.8 MCHC 32.9 RDW 13.7 Plt Count 164 MPV 9.6 Neut # (Auto) 5.6 Lymph # (Auto) 1.0 L [place] # (Auto) 0.7 Eos # (Auto) 0.3 Baso # (Auto) 0.1 Absolute Nucleated RBC 0.00 Nucleated RBC % 0.0 Sodium 136 Potassium 6.1 H* Chloride 103 Carbon Dioxide 25 Anion Gap 8.0 BUN 48 H Creatinine 3.3 H Estimated GFR (MDRD) 14 L Glucose 280 H POC Whole Bld Glucose Calcium 9.0 Total Bilirubin 0.6 AST 16 ALT 14 Alkaline Phosphatase 111 Total Protein 7.6 Albumin 4.1 Globulin 3.5 Albumin/Globulin Ratio 1.2 Lipase 23 Urine Color YELLOW Urine Clarity CLEAR Urine pH 7.5 Ur Specific [place] 1.010 Urine Protein 100 H Urine Glucose (UA) 250 H Urine Ketones NEGATIVE Urine Occult Blood MODERATE H Urine Nitrite NEGATIVE Urine Bilirubin NEGATIVE Urine Urobilinogen 0.2 (NORMAL) Ur Leukocyte Esterase NEGATIVE Urine RBC 6-10 H Urine WBC 0-3 Ur Squamous Epith Cells RARE Squamous Urine Bacteria Rare Ur Microscopic Review INDICATED Urine Culture Comments NOT INDICATED 04/10/22 04/10/22 04/10/22 12:14 13:32 13:55 WBC RBC Hgb Hct MCV MCH MCHC RDW Plt Count MPV Neut # (Auto) Lymph # (Auto) [place] # (Auto) Eos # (Auto) Baso # (Auto) Absolute Nucleated RBC Nucleated RBC % Sodium Potassium 5.2 H Chloride Carbon Dioxide Anion Gap BUN Creatinine Estimated GFR (MDRD) Glucose POC Whole Bld Glucose 280 H 214 H Calcium Total Bilirubin AST ALT Alkaline Phosphatase Total Protein Albumin Globulin Albumin/Globulin Ratio Lipase Urine Color Urine Clarity Urine pH Ur Specific [place] Urine Protein Urine Glucose (UA) Urine Ketones Urine Occult Blood Urine Nitrite Urine Bilirubin Urine Urobilinogen Ur Leukocyte Esterase Urine RBC Urine WBC Ur Squamous Epith Cells Urine Bacteria Ur Microscopic Review Urine Culture Comments 04/10/22 14:17 WBC RBC Hgb Hct MCV MCH MCHC RDW Plt Count MPV Neut # (Auto) Lymph # (Auto) [place] # (Auto) Eos # (Auto) Baso # (Auto) Absolute Nucleated RBC Nucleated RBC % Sodium Potassium Chloride Carbon Dioxide Anion Gap BUN Creatinine Estimated GFR (MDRD) Glucose POC Whole Bld Glucose 179 H Calcium Total Bilirubin AST ALT Alkaline Phosphatase Total Protein Albumin Globulin Albumin/Globulin Ratio Lipase Urine Color Urine Clarity Urine pH Ur Specific [place] Urine Protein Urine Glucose (UA) Urine Ketones Urine Occult Blood Urine Nitrite Urine Bilirubin Urine Urobilinogen Ur Leukocyte Esterase Urine RBC Urine WBC Ur Squamous Epith Cells Urine Bacteria Ur Microscopic Review Urine Culture Comments PD MEDICAL DECISION MAKING - ED course Complexity details: reviewed results, re-evaluated patient, d/w patient, d/w family ED course: Pt presenting with R flank pain, has history of stones. Initial BP elevated but improved throughout ED course. Pt does not appear septic. Labs reviewed. K elevated. CT scan with recently passed stone. Pain improved in ED. Pt's K improved with treatment here and D/W nephrology who will see the patient in follow up. Pt advised on concerning symptoms to return for. 1305 - D/W Dr. Lowe (capital project engineer) - Recommends that potassium be lowered to at least 5.8. He recommends treating the patient on Kayexalate Thursday, Thursday, Thursday And he will see the patient for follow-up. 1420 - Patient feeling better. No longer having nausea or pain. Departure - Departure Disposition: Home, Self Care Clinical Impression: Right ureteral stone, Hyperkalemia CKD (chronic kidney disease) Qualifiers: Chronic kidney disease stage: stage 4 (severe) Qualified Code(s): N18.4 - Chronic kidney disease, stage 4 (severe) Condition: Stable Instructions: ED Potassium Excess, ED Stone Renal Passed Follow-Up: Laurie Lowe MD [Primary Care Provider] - Prescriptions: Sod Polystyrene Sulf. [Kayexalate] See Rx Instructions .ROUTE .COMPLEX #160 ml Oxycodone HCl/Acetaminophen [Percocet 5-325 mg Tablet] 1 each PO Q6H PRN #10 tablet PRN Reason: pain Ondansetron Odt [Zofran] 4 mg TL Q6H PRN #10 tablet PRN Reason: Nausea / Vomiting Comments: You were evaluated for pain to your right side and found to have a kidney stone that has moved into your bladder.Your labs were also checked and your potassium was high. You were given medicine to help with your potassium and it has improved. After speaking to your kidney doctor, he has recommended we start you on a medicine called Kayexalate to be taken 3 times a week on Mondays and Fridays. I have sent this prescription to [facility] in [place]. This will help keep your potassium from becoming too high. I have also sent a small amount of pain medicine and nausea medicine if you need it to pass the Stone from your bladder. If you have any worsening symptoms please return to the emergency department. Please call your capital project engineer in the next week to arrange for close follow-up. I have sent prescriptions to [facility] in [place]. I am prescribing a short course of narcotic pain medication for you. These are potentially dangerous and addictive medications that should be used carefully. These medications may constipate you. Take an [id number] stool softener (docusate) twice daily with plenty of water while taking these medications. If you go 24 hours without a bowel movement, take [id number] miralax, per package instructions. Do not drink or drive while taking these medications. If you received narcotic or sedating medications while in the emergency department, do not drive for 24 hours. Store this medication in a safe, secure place and out of reach of children. It is a violation of federal law to give or sell this medication to another person or to use in a manner other than prescribed. The ED will not refill narcotic prescriptions, including prescriptions lost or stolen. To dispose of unwanted medications: 1. [facility] [address] in [place] has a medication drop box. They accept prescription medications (in pill form) Thursday through Thursday 9:00 a.m. to 5:00 p.m. 2. The [facility] [employer] Department accepts prescription medications (in pill form only) for disposal year round. Call for more information. 3. Contact the [facility] for the next [facility] sponsored prescription drug collection event. , [phone], or [phone]; Note that many narcotic pain relievers also contain Tylenol/acetaminophen. Please ensure that your total dose of acetaminophen from all sources does not exceed 3 g (3000 mg) per day. Discharge Date/Time: 04/10/22 14:40
--- NOTE | 2022-04-10 12:06 | CT Report ---
PROCEDURE: Abdomen/Pelvis WO INDICATIONS: R flank to abd pain TECHNIQUE: Noncontrast 5 mm thick sections acquired from the diaphragms to the symphysis. 5 mm coronal and sagi ttal reformats were then performed. For radiation dose reduction, the following was used: automated exposure control, adjustment of mA and/or kV according to patient size. COMPARISON: 3020 and 01/04/2021. FINDINGS: Image quality: Excellent. ABDOMEN: Lung bases: Lung bases are clear. Heart size is normal. Solid organs: Liver and spleen are normal in size. Gallbladder is within normal limits. Pancreas i s normal in contours. No adrenal nodules. Kidneys are normal in size. There is prominence of right renal collecting system and mild right perin ephric fat stranding. There is hydroureter extending to the level of right UVJ. No calcified ureteral stone is identified. Nonobstructing stones are noted in bilateral kidneys measures up to 5 mm in siz e in midpole of right kidney and 3 mm in size in mid to lower pole of left kidney. No left-sided hydr onephrosis or hydroureter. Peritoneum and bowel: There is a small hiatal hernia. No evidence of bowel obstruction. No gastric or small bowel wall thickening. No colonic wall thickening. Mild fecal stasis in the colon is seen. No abscess collection. No free fluid of free air. Nodes and vessels: No retroperitoneal or mesenteric adenopathy by size criteria. Aorta and inferior vena cava are normal in caliber. Mild to moderate atherosclerotic calcifications in the abdominal a jaya is seen. Miscellaneous: No ventral hernias. PELVIS: Genitourinary: Bladder wall thickness is normal. Tiny 2 mm calcification is seen in dependent porti on of bladder near left UVJ. Miscellaneous: No inguinal hernias or adenopathy. Bones: No suspicious bony lesions. No acute ertebral body compression fractures. Chronic appearing anterior wedge compression deformity at L1 level is again seen unchanged from prior studies. Degener ative disc disease throughout lower thoracic and lumbar spine is seen. IMPRESSION: 1. Bilateral nonobstructing renal calculi. Mild to moderate right-sided hydronephrosis and hydrourete r extending to the level of UVJ with 2 mm calcification seen in dependent portion of urinary bladder suggestive of a passed right-sided renal stone. No left-sided hydronephrosis or hydroureter. Bladder wall thickness is normal. 2. No bowel obstruction or abnormal bowel wall thickening. No free fluid of free air. 3. Stable chronic appearing anterior wedge compression deformity at L1 level unchanged from prior efren dies. No acute vertebral body compression fracture. Reviewed by: Andrés Harrington MD on 04/10/2022 12:05 PM PDT Approved by: Andrés Harrington MD on 04/10/2022 12:05 PM PDT Station ID: [id number]
[2022-04-10] MEDS ORDERED: SODIUM POLYSTYRENE SULFONATE 15 GM/60 ML BOTTLE PO STA (13:06)
[2022-04-10 14:18] VITALS: BP 164/70
== END 2022-04-10 14:40 | disposition home or self-care (01) ==
LOC: ED 10:05
DX: N13.2 Hydronephrosis with renal and ureteral calculous obstruction (principal); E11.22 Type 2 diabetes mellitus with diabetic chronic kidney disease; Z79.4 Long term (current) use of insulin; E87.6 Hypokalemia; N18.4 Chronic kidney disease, stage 4 (severe)
CPT/HCPCS: 36415; 74176; 80053; 81001; 83690; 84132; 85025; 93005; 96361; 96374; 96375; 99284; A9270; J1815; 81003; 87086

== ENCOUNTER 2022-04-15 20:42 | Emergency (ER) | payer MEDICAID ==
[2022-04-15 21:18] LABS: BASOPHILS % (AUTO) 0.4 %; EOSINOPHILS # (AUTO) 0.2 10^3/uL (0.0-0.7); EOSINOPHILS % (AUTO) 1.4 %; HCT - HEMATOCRIT 30.1 % (37.0-47.0); HGB - HEMOGLOBIN 10.1 g/dL (12.0-16.0); LYMPHOCYTES # (AUTO) 0.8 10^3/uL (1.5-3.5); LYMPHOCYTES % (AUTO) 6.9 %; MEAN CORPUSCULAR HEMOGLOBIN 29.3 pg (27.0-31.0); MEAN CORPUSCULAR HGB CONC 33.6 g/dL (32.0-36.0); MEAN CORPUSCULAR VOLUME 87.2 fL (81.0-99.0); MEAN PLATELET VOLUME 8.8 fL (7.9-10.8); MONOCYTES # (AUTO) 1.2 10^3/uL (0.0-1.0); MONOCYTES % (AUTO) 11.1 %; NEUTROPHILS # (AUTO) 8.9 10^3/uL (1.5-6.6); NEUTROPHILS % (AUTO) 79.8 %; PLT - PLATELET COUNT 147 10^3/uL (130-450); RED BLOOD COUNT 3.45 10^6/uL (4.20-5.40); RED CELL DISTRIBUTION WIDTH 13.9 % (12.0-15.0); WHITE BLOOD COUNT 11.1 x10^3/uL (4.8-10.8)
[2022-04-15 21:34] LABS: ALBUMIN/GLOBULIN RATIO 1.2 (1.0-2.2); BILIRUBIN,TOTAL 0.5 mg/dL (0.2-1.0); CALCIUM 8.7 mg/dL (8.5-10.3); CREATININE 6.3 mg/dL (0.4-1.0); POTASSIUM 5.2 mmol/L (3.5-5.0); TOTAL PROTEIN 7.3 g/dL (6.7-8.2)
[2022-04-15 21:56] LABS: BILIRUBIN,URINE NEGATIVE (NEGATIVE); GLUCOSE, URINE (UA) NEGATIVE (NEGATIVE); KETONES,URINE (UA) NEGATIVE (NEGATIVE); LEUKOCYTE ESTERASE, URINE MODERATE (NEGATIVE); NITRITE,URINE NEGATIVE (NEGATIVE); OCCULT BLOOD,URINE MODERATE (NEGATIVE); PH,URINE 6.5 PH (5.0-7.5); PROTEIN,URINE 100 mg/dL (NEGATIVE); UROBILINOGEN,URINE 0.2 (NORMAL) E.U./dL (NORMAL)
[2022-04-15 21:57] LABS: CLARITY,URINE HAZY (CLEAR)
[2022-04-15 22:05] LABS: BACTERIA,URINE Moderate /HPF (None Seen); SQUAMOUS EPITHELIAL CELL,UR MOD Squamous (<= Few)
[2022-04-15] MEDS ORDERED: ONDANSETRON 4 MG/2 ML VIAL IVP STA (22:11)
[2022-04-15] MEDS ORDERED: SODIUM CHLORIDE 0.9% 1,000 ML IV STA (22:12)
[2022-04-15] MEDS ORDERED: MORPHINE 2 MG/ML CARPUJECT IVP STA (22:12)
--- NOTE | 2022-04-15 22:19 | ED Physician Documentation ---
PD HPI ABD PAIN - Stated complaint Stated Complaint: RT SIDE PAIN, N/V - Chief complaint Chief Complaint: Abd Pain - History obtained from History obtained from: Patient - Additional information Additional information: 61-year-old woman with past medical history of Chronic kidney disease (still makes urine, nephro - Dr Acevedo), kidney stones diagnosed 6 days ago, presents with nbnb n/v and abdominal pain radiating to R flank c/w prior kidney stones. sharp, constant, sudden onset, 02/19. this has been ongoing over the past three days and she has been unable to keep pain meds and antiemetics down. patient feels quite dehydrated and this is why she presents today. denies fever, urinary sx, diarrhea. 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, Hysterectomy HEENT: Cataracts, Tonsil/Adenoidectomy - Present Medications Home Medications: Ambulatory Orders Medication Instructions Recorded Confirmed Aspirin [[place] Aspirin] 81 mg PO DAILY PRN 01/04/21 04/16/22 Atorvastatin Calcium 40 mg PO DAILY 01/04/21 01/04/21 Bupropion HCl [Wellbutrin Xl] 300 mg PO DAILY 01/04/21 01/04/21 Insulin Detemir [Levemir] 20 units SUBQ QPM 01/04/21 01/04/21 Insulin Lispro [Humalog] 3 - 8 units SUBQ TIDWM 01/04/21 01/04/21 Melatonin 3 mg PO QPM 01/04/21 01/04/21 [place]-3 Fatty Acids [Fish Oil 2,000 mg PO DAILY 01/04/21 01/04/21 Concentrate] polyethylene glycoL 3350 [Miralax] 17 gm PO DAILY PRN #1 bottle 01/09/21 Ondansetron Odt [Zofran] 4 mg TL Q6H PRN #10 tablet 04/10/22 Oxycodone HCl/Acetaminophen 1 each PO Q6H PRN #10 tablet 04/10/22 [Percocet 5-325 mg Tablet] Sod Polystyrene Sulf. [Kayexalate] See Rx Instructions .ROUTE 04/10/22 .COMPLEX #160 ml Cefpodoxime Proxetil [Vantin] 200 mg PO Q12H #28 tablet 04/16/22 HYDROmorphone [Dilaudid] 2 mg PO Q4H #10 tablet 04/16/22 Promethazine Supp [Phenergan Supp] 25 mg SC Q8H PRN #5 supp 04/16/22 - Allergies Allergies/Adverse Reactions: Allergies Allergy/AdvReac Type Severity Reaction Status Date / Time No Known Drug Allergies Allergy Verified 04/15/22 20:54 - Social History Does the pt smoke?: No Smoking Status: Never smoker Does the pt drink ETOH?: No Does the pt have substance abuse?: No - Immunizations Immunizations are current?: No - POLST Patient has POLST: No PD ED PE NORMAL - Vitals Vital signs reviewed: Yes - General General: Alert and oriented X 3, Well developed/nourished, Other (mild distress) - HEENT HEENT: Atraumatic, PERRL, EOMI - Neck Neck: Supple, no meningeal sign - Cardiac Cardiac: RRR - Respiratory Respiratory: No respiratory distress, Clear bilaterally - Abdomen Abdomen: Non tender, Non distended, Other (discomfort in RUQ) - Back Back: Other (R CVA ttp) - Derm Derm: Normal color, Warm and dry - Extremities Extremities: No deformity - Neuro Neuro: Alert and oriented X 3, No motor deficit, No sensory deficit - Psych Psych: Normal mood, Normal affect Results - Vitals Vitals: Vital Signs - 24 hr 04/15/22 04/15/22 04/15/22 20:49 20:54 22:54 Temperature 36.3 C L 36.5 C Heart Rate 78 78 80 Respiratory 16 16 16 Rate Blood Pressure 182/61 H 182/61 H 180/64 H O2 Saturation 98 98 100 If not protocol : Oxygen Flow, liters/minute 04/16/22 04/16/22 04/16/22 00:00 00:21 02:00 Temperature 36.5 C Heart Rate 82 75 Respiratory 16 20 14 Rate Blood Pressure 196/78 H 162/64 H O2 Saturation 100 99 If not protocol : Oxygen Flow, liters/minute 04/16/22 04/16/22 04/16/22 02:45 04:34 05:24 Temperature Heart Rate 75 67 16 L Respiratory 16 17 16 Rate Blood Pressure 181/70 H 122/60 147/60 H O2 Saturation 100 100 100 If not protocol 2 : Oxygen Flow, liters/minute Oxygen O2 Source Room air - Labs Labs: Laboratory Tests 04/15/22 04/15/22 04/15/22 21:15 21:15 21:45 WBC 11.1 H RBC 3.45 L Hgb 10.1 L Hct 30.1 L MCV 87.2 MCH 29.3 MCHC 33.6 RDW 13.9 Plt Count 147 MPV 8.8 Neut # (Auto) 8.9 H Lymph # (Auto) 0.8 L [place] # (Auto) 1.2 H Eos # (Auto) 0.2 Baso # (Auto) 0.0 Absolute Nucleated RBC 0.00 Nucleated RBC % 0.0 Sodium 131 L Potassium 5.2 H Chloride 97 L Carbon Dioxide 22 Anion Gap 12.0 BUN 60 H Creatinine 6.3 H Estimated GFR (MDRD) 7 L Glucose 163 H Calcium 8.7 Total Bilirubin 0.5 AST 11 ALT 10 Alkaline Phosphatase 100 Total Protein 7.3 Albumin 4.0 Globulin 3.3 Albumin/Globulin Ratio 1.2 Lipase 22 Urine Color YELLOW Urine Clarity HAZY Urine pH 6.5 Ur Specific [place] 1.010 Urine Protein 100 H Urine Glucose (UA) NEGATIVE Urine Ketones NEGATIVE Urine Occult Blood MODERATE H Urine Nitrite NEGATIVE Urine Bilirubin NEGATIVE Urine Urobilinogen 0.2 (NORMAL) Ur Leukocyte Esterase MODERATE H Urine RBC 11-25 H Urine WBC 11-25 H Ur Squamous Epith Cells MOD Squamous H Urine Bacteria Moderate H Ur Microscopic Review INDICATED Urine Culture Comments NOT INDICATED 04/15/22 23:02 WBC RBC Hgb Hct MCV MCH MCHC RDW Plt Count MPV Neut # (Auto) Lymph # (Auto) [place] # (Auto) Eos # (Auto) Baso # (Auto) Absolute Nucleated RBC Nucleated RBC % Sodium Potassium Chloride Carbon Dioxide Anion Gap BUN Creatinine Estimated GFR (MDRD) Glucose Calcium Total Bilirubin AST ALT Alkaline Phosphatase Total Protein Albumin Globulin Albumin/Globulin Ratio Lipase Urine Color YELLOW Urine Clarity CLEAR Urine pH 6.0 Ur Specific [place] 1.010 Urine Protein 100 H Urine Glucose (UA) NEGATIVE Urine Ketones NEGATIVE Urine Occult Blood MODERATE H Urine Nitrite NEGATIVE Urine Bilirubin NEGATIVE Urine Urobilinogen 0.2 (NORMAL) Ur Leukocyte Esterase SMALL H Urine RBC 6-10 H Urine WBC 6-10 H Ur Squamous Epith Cells FEW Squamous Urine Bacteria Few Ur Microscopic Review Urine Culture Comments INDICATED PD MEDICAL DECISION MAKING - ED course ED course: 61-year-old woman presents with likely repeat kidney stones. Unable to keep down fluids or medications. Will initiate symptomatic therapy and obtain another CT scan to reevaluate. Patient has leukocyte esterase in urine concerning for possible UTI. IV rocephin provided. patient with distal ureteral stone, mild hydro and perinephric stranding. also with decline in renal function. d/w urologist Dr. Theodore- plan to get her in at [facility] for 8:30am appointment this morning for evaluation. Patient should be NPO overnight. Patient aware. will send rx for vantin. return precautions given. note that patient was to be discharged but had persistent nausea. threw up around 1am. will give phenergan as this has worked well in the past. 3am - patient now sleeping comfortably. d/w - given that she hasn't been responding to percoset and zofran and seemed only to experience relief with IV phenergan and dilaudid we will continue monitoring her here until morning when he can take her to [facility] for urology appointment. 6am - patient slept comfortably overnight. asymptomatic at this time. will f/u with urology. Departure - Departure Disposition: 01 Home, Self Care Clinical Impression: Renal stone, DUY (acute kidney injury), UTI (urinary tract infection) Condition: Stable Instructions: Kidney Stones Follow-Up: MATEO THEODORE MD [Physician No Access] - Prescriptions: HYDROmorphone [Dilaudid] 2 mg PO Q4H #10 tablet Promethazine Supp [Phenergan Supp] 25 mg SC Q8H PRN #5 supp PRN Reason: Nausea / Vomiting Cefpodoxime Proxetil [Vantin] 200 mg PO Q12H #28 tablet Comments: Please follow-up with urology for 8:30 AM appointment for further evaluation. Return to the emergency department immediately if you have any new or worsening symptoms or other concerns.
[2022-04-15 23:15] LABS: BILIRUBIN,URINE NEGATIVE (NEGATIVE); GLUCOSE, URINE (UA) NEGATIVE (NEGATIVE); KETONES,URINE (UA) NEGATIVE (NEGATIVE); LEUKOCYTE ESTERASE, URINE SMALL (NEGATIVE); NITRITE,URINE NEGATIVE (NEGATIVE); OCCULT BLOOD,URINE MODERATE (NEGATIVE); PROTEIN,URINE 100 mg/dL (NEGATIVE); UROBILINOGEN,URINE 0.2 (NORMAL) E.U./dL (NORMAL)
[2022-04-15 23:24] LABS: BACTERIA,URINE Few /HPF (None Seen); CLARITY,URINE CLEAR (CLEAR); SQUAMOUS EPITHELIAL CELL,UR FEW Squamous (<= Few)
--- NOTE | 2022-04-15 23:35 | CT Report ---
PROCEDURE: Abdomen/Pelvis WO INDICATIONS: kidney stones TECHNIQUE: Noncontrast 5 mm thick sections acquired from the diaphragms to the symphysis. 5 mm coronal and sagi ttal reformats were then performed. For radiation dose reduction, the following was used: automated exposure control, adjustment of mA and/or kV according to patient size. COMPARISON: CT abdomen pelvis 04/10/2022. FINDINGS: Image quality: There is metallic streak artifact secondary to patient's surgical hardware within the proximal right femur limiting evaluation. Lung bases: There is mild dependant atelectasis. Heart: Heart is normal in size. URINARY: Right Kidney and Ureter: There is an obstructing stone within the distal right ureter measuring 0.3 cm with associated mild right hydroureteronephrosis with perinephric and perirenal fat stranding. The re are 2-3 additional nonobstructing right renal stones, with the largest stone measuring approximate ly 0.3 cm. Left Kidney and Ureter: There are calcifications in the left kidney likely representing nonobstructi ng renal stones measuring up to 0.4 cm. No hydronephrosis. No hydroureter. Bladder: Normal wall thickness. No stones. ABDOMEN: Liver: Noncontrast evaluation of the liver demonstrates no discrete mass. Gallbladder: Within normal limits without calcified gallstones. Biliary ducts: No biliary ductal dilatation. Pancreas: Unremarkable. Spleen: Normal in size. Adrenal Glands: No adrenal nodules. Stomach and Bowel: Stomach, small bowel loops, and colon are normal in caliber and wall thickness. N o pericecal inflammatory changes to suggest appendicitis. Peritoneum: No abnormal intraperitoneal fluid. No free air. Ventral Wall: No hernia. Abdominal Nodes: No retroperitoneal or mesenteric adenopathy by size criteria. Vessels: Aorta and inferior vena cava are normal in size. PELVIS: Pelvic Organs:The uterus is surgically absent. Pelvic Nodes: No enlarged lymph nodes. Miscellaneous: No inguinal hernias identified. Bones: There is a mild superior endplate compression deformity of the L1 vertebral body which appear s unchanged. Visualized osseous structures demonstrate no suspicious focal lesions. IMPRESSION: 1. Obstructing distal right ureteral stone with associated mild right hydroureteronephrosis. 2. Additional small bilateral nonobstructing renal stones as described. Reviewed by: Brady Lorenzo MD on 04/15/2022 11:41 PM PDT Approved by: Brady Lorenzo MD on 04/15/2022 11:41 PM PDT Station ID: [id number]
[2022-04-16] MEDS ORDERED: cefTRIAXone 1 GM in SODIUM CHLORIDE 0.9% MINIBAG 100 ML IV STA (00:09)
[2022-04-16] MEDS ORDERED: cefTRIAXone 1 GM VIAL ONE (00:27)
[2022-04-16] MEDS ORDERED: ONDANSETRON 4 MG/2 ML VIAL IVP STA (00:30)
[2022-04-16] MEDS ORDERED: HYDROmorphone 1 MG/ML CARPUJECT IVP STA (00:40)
[2022-04-16] MEDS ORDERED: PROMETHAZINE INJ 25 MG in SODIUM CHLORIDE 0.9% 50 ML IV STA (02:18)
[2022-04-16] MEDS ORDERED: PROMETHAZINE 25 MG/1 ML VIAL ONE (02:36)
[2022-04-16 06:06] VITALS: BP 148/62
== END 2022-04-16 06:15 | disposition home or self-care (01) ==
LOC: ED 20:42
DX: N17.9 Acute kidney failure, unspecified (principal); N39.0 Urinary tract infection, site not specified; N20.0 Calculus of kidney; E11.22 Type 2 diabetes mellitus with diabetic chronic kidney disease; N18.9 Chronic kidney disease, unspecified; Z79.4 Long term (current) use of insulin
CPT/HCPCS: 36415; 74176; 80053; 81001; 83690; 85025; 87086; 96361; 96365; 96367; 96375; 96376; 99284; J1170; J7040; 81003

== ENCOUNTER 2023-01-18 21:35 | Emergency (ER) | payer MEDICAID ==
[2023-01-18] MEDS ORDERED: HYDROmorphone 1 MG/ML CARPUJECT IVP STA (21:47)
[2023-01-18] MEDS ORDERED: SODIUM CHLORIDE 0.9% 1,000 ML IV STA (21:47)
[2023-01-18] MEDS ORDERED: PROMETHAZINE INJ 25 MG in SODIUM CHLORIDE 0.9% 50 ML IV STA (21:47)
--- NOTE | 2023-01-18 21:48 | ED Physician Documentation ---
PD HPI ABD PAIN - Stated complaint Stated Complaint: VOMIT/L SIDE PX - Chief complaint Chief Complaint: Abd Pain - History obtained from History obtained from: Patient - Additional information Additional information: 62-year-old woman with diabetes, stage V CKD seeing MONSERRAT Laguerre, and recurrent renal colic presents with right flank pain rating to the right groin starting suddenly about 2 hours ago. It is reminiscent of prior renal colic. She is nauseous. Denies dysuria or hematuria. PD PAST MEDICAL HISTORY - Past Medical History Cardiovascular: High cholesterol Endocrine/Autoimmune: Type 2 diabetes : Renal insuffiency Psych: Other - Past Surgical History Past Surgical History: Yes /[employer]: section, Hysterectomy HEENT: Cataracts, Tonsil/Adenoidectomy - Present Medications Home Medications: Ambulatory Orders Medication Instructions Recorded Confirmed Aspirin [[place] Aspirin] 81 mg PO DAILY PRN 01/04/21 01/18/23 Atorvastatin Calcium 40 mg PO DAILY 01/04/21 01/18/23 Insulin Detemir [Levemir] 20 units SUBQ QPM 01/04/21 01/18/23 Insulin Lispro [Humalog] 3 - 8 units SUBQ TIDWM 01/04/21 01/18/23 Melatonin 3 mg PO QPM 01/04/21 01/18/23 [place]-3 Fatty Acids [Fish Oil 2,000 mg PO DAILY 01/04/21 01/18/23 Concentrate] buPROPion HCL [Wellbutrin Xl] 300 mg PO DAILY 01/04/21 01/18/23 polyethylene glycoL 3350(BULK) 17 gm PO DAILY PRN #1 bottle 01/09/21 01/18/23 [Miralax] Ondansetron Odt [Zofran] 4 mg TL Q6H PRN #10 tablet 04/10/22 01/18/23 Oxycodone HCl/Acetaminophen 1 each PO Q6H PRN #10 tablet 04/10/22 01/18/23 [Percocet 5-325 mg Tablet] Sod Polystyrene Sulf. [Kayexalate] See Rx Instructions .ROUTE 04/10/22 01/18/23 .COMPLEX #160 ml HYDROmorphone [Dilaudid] 2 mg PO Q4H #10 tablet 04/16/22 01/18/23 Promethazine Supp [Phenergan Supp] 25 mg [place] Q8H PRN #5 supp 04/16/22 01/18/23 calcitrioL [Rocaltrol] 0.25 mcg PO 01/18/23 HYDROcod/ACETAM 5/325 [[place] 5/325] 1 - 2 tablet PO Q6H PRN #20 tablet 01/19/23 Promethazine [Phenergan] 25 mg PO Q6H PRN #10 tab 01/19/23 - Allergies Allergies/Adverse Reactions: Allergies Allergy/AdvReac Type Severity Reaction Status Date / Time No Known Drug Allergies Allergy Verified 01/18/23 21:41 - Social History Does the pt smoke?: No Smoking Status: Never smoker Does the pt drink ETOH?: No Does the pt have substance abuse?: No - Immunizations Immunizations are current?: No - POLST Patient has POLST: No PD ED PE NORMAL - Vitals Vital signs reviewed: Yes - General General: Alert and oriented X 3, Other (Appears slightly uncomfortable but nontoxic) - Abdomen Abdomen: Normal bowel sounds, Soft, Non tender - Back Back: Other (Mild right flank tenderness) - Derm Derm: Normal color, Warm and dry - Neuro Neuro: Alert and oriented X 3, Normal speech Results - Vitals Vitals: Vital Signs - 24 hr 01/18/23 01/19/23 01/19/23 21:38 02:23 02:31 Temperature 35.8 C L Heart Rate 68 73 96 Respiratory 18 18 16 Rate Blood Pressure 151/64 H 204/67 H 185/79 H O2 Saturation 100 100 100 01/19/23 01/19/23 01/19/23 04:00 06:00 07:38 Temperature Heart Rate 73 76 82 Respiratory 18 16 16 Rate Blood Pressure 138/96 H 162/63 H 178/72 H O2 Saturation 98 96 99 Oxygen O2 Source Room air - Labs Labs: Laboratory Tests 01/18/23 01/18/23 01/18/23 22:01 22:01 23:30 WBC 6.7 RBC 3.82 L Hgb 10.3 L Hct 31.9 L MCV 83.5 MCH 27.0 MCHC 32.3 RDW 13.5 Plt Count 184 MPV 10.0 Neut # (Auto) 4.7 Lymph # (Auto) 1.2 L [place] # (Auto) 0.6 Eos # (Auto) 0.2 Baso # (Auto) 0.0 Absolute Nucleated RBC 0.00 Nucleated RBC % 0.0 Sodium 138 Potassium 4.7 Chloride 109 Carbon Dioxide 23 Anion Gap 6.0 BUN 49 H Creatinine 3.2 H Estimated GFR (MDRD) 15 L Glucose 207 H Calcium 8.7 Total Bilirubin 0.5 AST 14 ALT 13 Alkaline Phosphatase 93 Total Protein 7.6 Albumin 4.0 Globulin 3.6 Albumin/Globulin Ratio 1.1 Lipase 29 Urine Color YELLOW Urine Clarity CLEAR Urine pH 5.5 Ur Specific [place] 1.015 Urine Protein 30 H Urine Glucose (UA) 100 H Urine Ketones NEGATIVE Urine Occult Blood SMALL H Urine Nitrite NEGATIVE Urine Bilirubin NEGATIVE Urine Urobilinogen 0.2 (NORMAL) Ur Leukocyte Esterase SMALL H Urine RBC 0-5 Urine WBC 6-10 H Ur Squamous Epith Cells FEW Squamous Urine Bacteria Few Ur Microscopic Review INDICATED Urine Culture Comments INDICATED 01/19/23 01/19/23 01/19/23 04:31 04:31 05:49 WBC 10.5 RBC 3.89 L Hgb 10.4 L Hct 32.5 L MCV 83.5 MCH 26.7 L MCHC 32.0 RDW 13.5 Plt Count 171 MPV 9.7 Neut # (Auto) 9.2 H Lymph # (Auto) 0.7 L [place] # (Auto) 0.5 Eos # (Auto) 0.0 Baso # (Auto) 0.0 Absolute Nucleated RBC 0.00 Nucleated RBC % 0.0 Sodium 137 Potassium 6.8 H* Chloride 110 Carbon Dioxide 20 L Anion Gap 7.0 BUN 52 H Creatinine 3.5 H Estimated GFR (MDRD) 13 L Glucose 191 H Calcium 8.2 L Total Bilirubin AST ALT Alkaline Phosphatase Total Protein Albumin Globulin Albumin/Globulin Ratio Lipase Urine Color YELLOW Urine Clarity CLEAR Urine pH 5.0 Ur Specific [place] 1.015 Urine Protein 30 H Urine Glucose (UA) 100 H Urine Ketones NEGATIVE Urine Occult Blood SMALL H Urine Nitrite NEGATIVE Urine Bilirubin NEGATIVE Urine Urobilinogen 0.2 (NORMAL) Ur Leukocyte Esterase NEGATIVE Urine RBC 0-5 Urine WBC 0-3 Ur Squamous Epith Cells RARE Squamous Urine Bacteria None Seen Ur Microscopic Review INDICATED Urine Culture Comments NOT INDICATED 01/19/23 06:22 WBC RBC Hgb Hct MCV MCH MCHC RDW Plt Count MPV Neut # (Auto) Lymph # (Auto) [place] # (Auto) Eos # (Auto) Baso # (Auto) Absolute Nucleated RBC Nucleated RBC % Sodium Potassium 5.9 H Chloride Carbon Dioxide Anion Gap BUN Creatinine Estimated GFR (MDRD) Glucose Calcium Total Bilirubin AST ALT Alkaline Phosphatase Total Protein Albumin Globulin Albumin/Globulin Ratio Lipase Urine Color Urine Clarity Urine pH Ur Specific [place] Urine Protein Urine Glucose (UA) Urine Ketones Urine Occult Blood Urine Nitrite Urine Bilirubin Urine Urobilinogen Ur Leukocyte Esterase Urine RBC Urine WBC Ur Squamous Epith Cells Urine Bacteria Ur Microscopic Review Urine Culture Comments PD Medical Decision Making - ED course Complexity details: reviewed old records, reviewed results (Lab work showing chronic normocytic anemia and improved renal function from prior labs with hyperglycemia.) ED course: Care to Dr Santiago at 11p chg of shift p CT read. Feeling better p 1mg IV dilaudid and 25mg IV phenergan. Departure - Departure Disposition: Home, Self Care Clinical Impression: Renal colic on right side Chronic kidney disease Qualifiers: Chronic kidney disease stage: stage 5, not on chronic dialysis Qualified Code(s): N18.5 - Chronic kidney disease, stage 5 Condition: Stable Record reviewed to determine appropriate education?: Yes Instructions: ED Stone Renal W Colic Prescriptions: HYDROcod/ACETAM 5/325 [[place] 5/325] 1 - 2 tablet PO Q6H PRN #20 tablet PRN Reason: Pain Promethazine [Phenergan] 25 mg PO Q6H PRN #10 tab PRN Reason: Nausea / Vomiting Comments: Your CT scan shows a 2 mm stone in your right ureter that is nearly to the bladder. Your kidney function is at baseline. Your white blood cell count has remained normal over 2 measurements overnight, and although your urinalysis initially showed a few white blood cells, the repeat urinalysis was completely normal. Your potassium was noted to make an usually large jump between last night and early this morning. Because the jump was so large, this level was repeated to be sure it was accurate. The repeat level was much improved, though still slightly high. You have been given medication here in the emergency department for this. Your case has been discussed with the covering urologist for the [facility] urology group, as well as the carton making machine operator (kidney specialist) on-call at [facility], Dr. Stephens. Dr. Stephens has recommended another medicatio n for your potassium which has been given today. He would like you to see your primary doctor at the end of the week and get a repeat level to be sure this is continuing to improve. We have called the urology clinic and they have scheduled an appointment for you for February 02 at 9 AM with Yady Ashby. Please be sure to keep this appointment. Prescriptions for pain and nausea medication have been electronically transmitted to the pharmacy of your choice. If you become unable to hold your medications down, or if the pain becomes excruciating and uncontrolled by your pain meds, or if you develop a fever, please return to the emergency department. Otherwise, based on the size of the stone and its position near the end of your ureter, it is highly likely that the stone will pass on its own with fluid hydration and time. Discharge Date/Time: 01/19/23 09:01
[2023-01-18] MEDS ORDERED: PROMETHAZINE 25 MG/1 ML VIAL ONE (22:11)
[2023-01-18 22:16] LABS: BASOPHILS % (AUTO) 0.6 %; EOSINOPHILS # (AUTO) 0.2 10^3/uL (0.0-0.7); EOSINOPHILS % (AUTO) 3.3 %; HCT - HEMATOCRIT 31.9 % (37.0-47.0); HGB - HEMOGLOBIN 10.3 g/dL (12.0-16.0); LYMPHOCYTES # (AUTO) 1.2 10^3/uL (1.5-3.5); LYMPHOCYTES % (AUTO) 17.2 %; MEAN CORPUSCULAR HGB CONC 32.3 g/dL (32.0-36.0); MEAN CORPUSCULAR VOLUME 83.5 fL (81.0-99.0); MONOCYTES # (AUTO) 0.6 10^3/uL (0.0-1.0); MONOCYTES % (AUTO) 9.1 %; NEUTROPHILS # (AUTO) 4.7 10^3/uL (1.5-6.6); NEUTROPHILS % (AUTO) 69.5 %; PLT - PLATELET COUNT 184 10^3/uL (130-450); RED BLOOD COUNT 3.82 10^6/uL (4.20-5.40); RED CELL DISTRIBUTION WIDTH 13.5 % (12.0-15.0); WHITE BLOOD COUNT 6.7 x10^3/uL (4.8-10.8)
[2023-01-18 22:29] LABS: ALBUMIN/GLOBULIN RATIO 1.1 (1.0-2.2); BILIRUBIN,TOTAL 0.5 mg/dL (0.2-1.0); CALCIUM 8.7 mg/dL (8.5-10.3); CREATININE 3.2 mg/dL (0.4-1.0); POTASSIUM 4.7 mmol/L (3.5-5.0); TOTAL PROTEIN 7.6 g/dL (6.7-8.2)
[2023-01-18 23:41] LABS: BILIRUBIN,URINE NEGATIVE (NEGATIVE); GLUCOSE, URINE (UA) 100 mg/dL (NEGATIVE); KETONES,URINE (UA) NEGATIVE (NEGATIVE); LEUKOCYTE ESTERASE, URINE SMALL (NEGATIVE); NITRITE,URINE NEGATIVE (NEGATIVE); OCCULT BLOOD,URINE SMALL (NEGATIVE); PH,URINE 5.5 PH (5.0-7.5); PROTEIN,URINE 30 mg/dL (NEGATIVE); UROBILINOGEN,URINE 0.2 (NORMAL) E.U./dL (NORMAL)
[2023-01-18 23:43] LABS: CLARITY,URINE CLEAR (CLEAR)
[2023-01-18 23:48] LABS: BACTERIA,URINE Few /HPF (None Seen); RBC,URINE 0-5 /HPF (0-5); SQUAMOUS EPITHELIAL CELL,UR FEW Squamous (<= Few)
--- NOTE | 2023-01-19 00:01 | CT Report ---
PROCEDURE: ABDOMEN/PELVIS WO INDICATIONS: r flank pain TECHNIQUE: A CT scan of the abdomen and pelvis was performed without the use of intravenous contrast. Images we re recorded and evaluated at appropriate window settings. Reformats: coronal and sagittal. For radiat ion dose reduction, the following was used: automated exposure control, adjustment of mA and/or kV ac cording to patient size. COMPARISON: CT abdomen pelvis 04/15/2022. FINDINGS: Image quality: Excellent. Lung bases: There is mild dependant atelectasis. Heart: Heart is normal in size. URINARY: Right Kidney and Ureter: There is a small 0.2 cm obstructing stone within the distal right ureter pr oximal to the ureterovesicular junction with associated mild right hydroureteronephrosis. There is ex tensive perinephric and perirenal fat stranding. An additional 0.4 cm nonobstructing stone is also de monstrated within the right kidney. Left Kidney and Ureter: There are fourth ventricle stones within the left kidney, with the largest measuring up to 0.4 cm. No hydronephrosis. No hydroureter. Bladder: Normal wall thickness. No stones. ABDOMEN: Liver: Noncontrast evaluation of the liver demonstrates no discrete mass. Gallbladder: Within normal limits without calcified gallstones. Biliary ducts: No biliary ductal dilatation. Pancreas: Unremarkable. Spleen: Normal in size. Adrenal Glands: No adrenal nodules. Stomach and Bowel: Stomach, small bowel loops, and colon are normal in caliber and wall thickness. N o pericecal inflammatory changes to suggest appendicitis. Peritoneum: No abnormal intraperitoneal fluid. No free air. Ventral Wall: No hernia. Abdominal Nodes: No retroperitoneal or mesenteric adenopathy by size criteria. Vessels: Aorta and inferior vena cava are normal in size. PELVIS: Pelvic Organs:The uterus is surgically absent. Pelvic Nodes: No enlarged lymph nodes. Miscellaneous: No inguinal hernias identified. Bones: There is a minimal superior endplate compression deformity of the L1 vertebral body which kevin ears unchanged. Visualized osseous structures demonstrate no suspicious focal lesions. IMPRESSION: 1. Obstructing distal right ureteral stone with mild right hydroureteronephrosis and extensive perine phric stranding. 2. Additional bilateral nonobstructing renal stones as described. Reviewed by: Brady Lorenzo MD on 01/19/2023 12:00 AM PDT Approved by: Brady Lorenzo MD on 01/19/2023 12:00 AM PDT Station ID: [id number]
[2023-01-19] MEDS ORDERED: ONDANSETRON 4 MG/2 ML VIAL IVP STA (00:48)
[2023-01-19] MEDS ORDERED: HYDROmorphone 1 MG/ML CARPUJECT IVP STA (00:48)
[2023-01-19] MEDS ORDERED: cefTRIAXone 1 GM VIAL IVP STA (00:49)
[2023-01-19] MEDS ORDERED: TAMSULOSIN 0.4 MG CAPSULE PO STA (01:05)
--- NOTE | 2023-01-19 01:37 | ED Physician Documentation ---
ED Addendum - Addendum Addendum: 01/19/23 01:31 I received signout from Dr. Olmos at end of his shift; please see Dr. Olmos's note for complete history and physical. In brief, patient presents with chief complaint of right flank pain, nausea and vomiting. She is found to have a distal ureteral 2 mm calculus with mild hydro- ureteronephrosis, as well as extensive perinephric stranding. Also noted are bilateral nonobstructing renal stones. Patient's elevated BUN is comparable to previous results, creatinine is 3.2, which is the lowest creatinine on [facility] records dating back to 2020. Her urinalysis shows small blood, small leukocytes on macroscopic testing, 0-5 RBC/hpf, 6-10 WBC/hpf with few squamous cells and few bacteria on the microscopic exam. Once these tests are resulted, I reevaluated the patient. She is drowsy, but says her pain is returning and does look like she is in waxing and waning mild painful discomfort. She tells me her chief concern is that her nausea has returned more than the pain, requesting more antinausea medications. For these symptoms, she is given 0.5 mg Dilaudid IV, as well as 8 mg of Zofran IV. I discussed this case with Dr. Young (urology renovation plant supervisor for [facility] group). He recommends giving IV antibiotic (I had already ordered, and patient is already given, 1 g IV Rocephin). He recommends spending a little more time working on this patient in the emergency department at [facility] before considering transfer, particularly given the small size of the stone and the distal location. I updated the patient and her (in the ED at bedside) on this plan. Should patient remain in the emergency department until the morning due to ongoing symptoms, urology on-call is scheduled to be available at 8 AM (at [facility]). If there is a complication in the interim, such as development of fever, or severe and intractable vomiting or pain, Dr. Young said I can get back in touch with him to reevaluate situation and reconsider transfer 01/19/23 06:08 Patient has been sleeping comfortably since receiving the above medications. I would repeat blood tests and repeat urinalysis. There is no significant change in a CBC (white blood cell count is higher than previous, but still within the normal range). The urinalysis now is showing only small blood on micro (no leukocytes), and on microscopy there are no red cells, no white blood cells, no bacteria seen. Unfortunately, the repeat potassium is 6.8 (up from 4.7). Her kidney function tests have not changed significantly (BUN 52, up from 49; creatinine 3.5, up from 3.2; GFR 13, down from 15). EKG is NSR, 77 bpm, LAD, Q V1 and V2 but no ST elevations nor depressions, no peaked T waves. At this time, repeat potassium is pending. Repeat potassium is 5.9. I attempted to contact patient's emergency registrar , but was told they were changing shift at 7 AM (call was placed to the service at approximately 6:40 AM) and that whomever was coming on service for the group would call shortly thereafter. As of 7:20 AM, nephrology still had not called back (a second call by my RESTAURANT SERVICE MANAGER was placed at approximately 7:05 AM). Care of patient is turned over to oncoming ED physician. I ordered another 500cc NS IV (this will be a total of 1500 cc over the course of her ED stay), as well as 10 units regular insulin IV and 1 amp D50 IV (to effect intracellular potassium shift).
[2023-01-19] MEDS ORDERED: SODIUM CHLORIDE 0.9% 500 ML IV STA ×2 (03:45→06:48)
[2023-01-19 04:34] LABS: BASOPHILS % (AUTO) 0.4 %; EOSINOPHILS % (AUTO) 0.3 %; HCT - HEMATOCRIT 32.5 % (37.0-47.0); HGB - HEMOGLOBIN 10.4 g/dL (12.0-16.0); LYMPHOCYTES # (AUTO) 0.7 10^3/uL (1.5-3.5); LYMPHOCYTES % (AUTO) 6.9 %; MEAN CORPUSCULAR HEMOGLOBIN 26.7 pg (27.0-31.0); MEAN CORPUSCULAR VOLUME 83.5 fL (81.0-99.0); MEAN PLATELET VOLUME 9.7 fL (7.9-10.8); MONOCYTES # (AUTO) 0.5 10^3/uL (0.0-1.0); MONOCYTES % (AUTO) 4.7 %; NEUTROPHILS # (AUTO) 9.2 10^3/uL (1.5-6.6); NEUTROPHILS % (AUTO) 87.4 %; PLT - PLATELET COUNT 171 10^3/uL (130-450); RED BLOOD COUNT 3.89 10^6/uL (4.20-5.40); RED CELL DISTRIBUTION WIDTH 13.5 % (12.0-15.0); WHITE BLOOD COUNT 10.5 x10^3/uL (4.8-10.8)
[2023-01-19 05:50] LABS: CALCIUM 8.2 mg/dL (8.5-10.3); CREATININE 3.5 mg/dL (0.4-1.0)
[2023-01-19 05:54] LABS: POTASSIUM 6.8 mmol/L (3.5-5.0)
[2023-01-19 05:58] LABS: BILIRUBIN,URINE NEGATIVE (NEGATIVE); CLARITY,URINE CLEAR (CLEAR); GLUCOSE, URINE (UA) 100 mg/dL (NEGATIVE); KETONES,URINE (UA) NEGATIVE (NEGATIVE); LEUKOCYTE ESTERASE, URINE NEGATIVE (NEGATIVE); NITRITE,URINE NEGATIVE (NEGATIVE); OCCULT BLOOD,URINE SMALL (NEGATIVE); PROTEIN,URINE 30 mg/dL (NEGATIVE); UROBILINOGEN,URINE 0.2 (NORMAL) E.U./dL (NORMAL)
[2023-01-19 06:06] LABS: BACTERIA,URINE None Seen /HPF (None Seen); RBC,URINE 0-5 /HPF (0-5); SQUAMOUS EPITHELIAL CELL,UR RARE Squamous (<= Few); WBC,URINE 0-3 /HPF (0-5)
[2023-01-19] MEDS ORDERED: INSULIN REGULAR HUMAN 300 UNIT/3 ML VIAL IVP STA (06:48)
[2023-01-19] MEDS ORDERED: DEXTROSE 50% ABBOJECT 25 GM/50 ML SYRINGE IVP STA (06:49)
[2023-01-19 07:47] VITALS: BP 178/72
[2023-01-19] MEDS ORDERED: SODIUM ZIRCONIUM CYCLOSILICATE 5 GM PACKET PO STA (08:14)
--- NOTE | 2023-02-02 10:36 | ED Physician Documentation ---
ED Addendum - Addendum Addendum: 02/02/23 10:31 The pt was signed out to me at change of shift by Dr. Santiago, pending discussion with nephrology and second repeat potassium level, after first repeat jumped precipitously. The second repeat was quite a bit lower, though still moderately elevated. The pt was treated for this in the ED. She had been found to have a small R ureteral stone and had renal insufficiency at baseline. As such, nephrology had been paged for recommendations by Dr. Santiago. I re-evaluated the pt, who was feeling much better. Her stone was quite small, and I suspected it would pass on its own. Dr. Stephens did call back, and recommended an additional medication for the pt's potassium, and follow-up within a week or so to re-check levels. We called the urology clinic and an appointment was made for the pt for this week with one of their midlevel providers. The pt already had a prescription for antibiotics, and had been given first dose in the ED. FI: See original note Disposition: Home in stable and improved condition.
== END 2023-01-19 09:01 | disposition home or self-care (01) ==
LOC: ED 21:35
DX: E11.22 Type 2 diabetes mellitus with diabetic chronic kidney disease (principal); N18.5 Chronic kidney disease, stage 5; N13.2 Hydronephrosis with renal and ureteral calculous obstruction; E87.5 Hyperkalemia; Z79.4 Long term (current) use of insulin
CPT/HCPCS: 36415; 74176; 80048; 80053; 81001; 83690; 84132; 85025; 87086; 93005; 96365; 96375; 96376; 99285; A9270; J1170; J1815; J7040; 81003

== ENCOUNTER 2023-07-01 19:16 | Outpatient (CLI) | payer MEDICAID | END 2023-07-01 19:17 | disposition EMS.NT | LOC: EMS 19:16 | DX: E11.649 Type 2 diabetes mellitus with hypoglycemia without coma (principal) ==

== ENCOUNTER 2024-01-24 13:50 | Outpatient (CLI) | payer MEDICAID | END 2024-01-24 23:59 | disposition EMS.NT | LOC: EMS 13:50 | DX: E11.649 Type 2 diabetes mellitus with hypoglycemia without coma (principal); R11.0 Nausea ==